=== PATIENT | male | born 1945 | race Caucasian/White ===

== ENCOUNTER 2017-08-25 04:49 | Observation (INO) | payer MEDICARE, SELFPAY ==
[2017-08-25] VITALS (16 sets, daily range): BP systolic 113–141; BP diastolic 60–96; PULSE 57–96; RESP 16–31; TEMP 36.3–36.8; O2SAT 95–99; BMI 27.8; BMI 27.7
--- NOTE | 2017-08-25 04:54 | EKG12_ITS ---
Test Reason : MENTAL HEALTH Blood Pressure : / mmHG Vent. Rate : 091 BPM Atrial Rate : 091 BPM P-R Int : 186 ms QRS Dur : 086 ms QT Int : 368 ms P-R-T Axes : 001 004 037 degrees QTc Int : 452 ms Normal sinus rhythm Normal ECG Confirmed by TOMMY MTZ ([id number]), acquisitions editor AMERICA SHEA ([id number] on 08/29/2017 10:13:47 AM Referred By: Confirmed By:TOMMY MTZ
--- NOTE | 2017-08-25 04:54 | RAD_ITS ---
STUDY: X-RAY CHEST REASON FOR EXAM: Male, 71 years old. Mental status change TECHNIQUE: 1 view COMPARISON: July 17, 2016 FINDINGS: The lungs are clear and expanded. There is no demonstrated pleural abnormality. Normal size heart. Normal mediastinum and adam. Normal visualized pulmonary arteries. Normal visualized aortic arch and descending thoracic aorta. Normal visualized thoracic spine. A reverse right shoulder arthroplasty. Widening of the right acromioclavicular joint with a suggestion of an excision involving the distal right clavicle There is no demonstrated abnormality of the visualized soft tissue structures of the upper abdomen. RAD/Chest 1 View IMPRESSION: No acute findings in the lungs. A reverse right shoulder arthroplasty. A dislocation of the right acromioclavicular joint with an excised tip and elevated distal end of right clavicle Electronically Signed: Eliezer Ortiz, at 5:57 EDT Tel , Service support ,
--- NOTE | 2017-08-25 04:54 | CT_ITS ---
STUDY: CT BRAIN WITHOUT CONTRAST REASON FOR EXAM: Male, 71 years old. Change in mental status RADIATION DOSAGE (If Supplied By Facility): CTDIvol = ( 44.99 ) mGy, DLP = ( 796.11 ) mGycm TECHNIQUE: Transaxial CT imaging of the brain was performed without administration of intravenous contrast material. Individualized dose optimization techniques were used for this CT. COMPARISON: None. FINDINGS: Normal soft tissue structures. Normal calvarium. Normal size ventricles and extra-axial spaces for the patient's age. Normal white matter tracts of the cerebral hemispheres. Normal basal ganglia and thalami. Normal brainstem. Normal cerebellum. There is no intracranial hemorrhage. There are no findings of an acute ischemic infarction. There is bowing of the nasal septum to the right CT/Brain/Head without Contrast IMPRESSION: No acute findings in the brain. Electronically Signed: Eliezer Ortiz, at 5:38 EDT Tel , Service support ,
--- NOTE | 2017-08-25 05:02 | ED.VISSUMM ---
- ER Visit Summary Date of Service: 08/25/17 Chief Complaint: Unresponsive History of Present Illness: The patient is a 71 M presenting after unresponsive episode. Friend states she heard him make a loud noise. He was then found to have snoring respirations. She states he started shaking all over. She was unable to arouse him. EMS was called. On their arrival patient is responsive. He is confused and unable to answer questions. Physical Examination: Vitals are stable. Patient is afebrile. Alert no acute distress. HEENT exam is unremarkable. Neck is supple. Lungs are clear and equal bilaterally. Heart is regular rate and rhythm. Abdomen is soft nontender nondistended. Extremities are unremarkable. Skin is warm and dry. No focal neurologic deficit. Alert and oriented x2, NIH is 1 Remainder of exam is unremarkable. Emergency Department Course and Treatment: EKG is sinus rhythm rate of [address] head shows no acute process. Chest x-ray shows no acute findings. CBC, chemistries unremarkable other than glucose 113, creatinine 1.43. Urinalysis unremarkable. Troponin is negative. Repeat NIH is 0. Patient is now awake and alert. His symptoms may have represented a seizure versus TIA. Will discuss the hospitalist for observation. Disposition: Observation Impression: Altered mental status This note was generated with [employer] dictation software. It may contain incorrect words, spelling, and punctuation that were not noted in review of the chart prior to signing ED Disposition - Plan for ED Patient: Disposition: Acute Care Hospital [facility] Chief Complaint: Mental Status Change
[2017-08-25 05:31] LABS: Absolute Neutrophil Count 3.7 X10^3/uL (2.0-7.7); Basophil# 0.01 X10^3/uL; Basophil% 0.2 % (0-1); Eosinophil# 0.13 X10^3/uL; Eosinophils% 2.5 % (0-5); Hematocrit 41.1 % (40-54); Hemoglobin 13.8 g/dl (13.0-16.5); Lymphocyte % 17.5 % (19-41); Mean Corp Hgb Conc 33.6 g/gl (32-36); Mean Corpuscular Hgb 30.8 pg (27.0-32.0); Mean Corpuscular Volume 91.7 fL (80-94); Mean Platelet Vol. 9.7 fl (6.2-12.0); Monocyte# 0.37 X10^3/uL; Monocyte% 7.2 % (0-10); Neutrophil # 3.74 X10^3/uL (2.7-7.7); Neutrophil % 72.6 % (47-70); Platelet Count 187 K/mm3 (150-450); RBC Distribution Width CV 13.5 % (11.6-14.6); RBC Distribution Width SD 44.4 fl (35.1-43.9); Red Blood Count 4.48 M/mm3 (4.6-6.2); White Blood Count 5.2 K/mm3 (4.4-11.0)
[2017-08-25 05:36] LABS: Prothrombin Time (Protime)PT. 12.7 SECONDS (11.7-14.9)
[2017-08-25 05:37] LABS: Partial Thromboplast Time 28.5 Seconds (24.1-36.2)
[2017-08-25 05:50] LABS: Anion Gap 9 (5-15); BUN 11 mg/dL (7-18); BUN/Creat Ratio 7.7 RATIO (10-20); Calcium,Total 8.7 mg/dL (8.5-10.1); Chloride 107 mmol/L (98-107); Creatinine, Serum 1.43 mg/dL (0.70-1.30); EST Glomerular Filtration Rate 52 mL/min (>60); Est Glom Filt Rate - Afr Amer 63 mL/min (>60); Estimated Creatinine Clearance 44.94 ml/min; Glucose 113 mg/dL (74-106); Sodium Level 141 mmol/L (136-145)
[2017-08-25 05:52] LABS: Bacteria 0 SEEN /hpf (None Seen); Mucous, Urine 0 SEEN /hpf (<or=2+); Red Blood Cells-Urine 0 SEEN /hpf (0-5); Squamous Epithelial Cells - UA 0 SEEN /hpf (0-5); White Blood Cells 0 SEEN /hpf (0-5)
[2017-08-25 05:55] LABS: POSITIVE COUNT NO; POSITIVE DIFFERENTIAL NO; POSITIVE MORPHOLOGY NO
[2017-08-25 06:01] LABS: Color, Urine Yellow (Yellow); Glucose, Dipstick Normal (Normal); Ketone-Dipstick Negative (Negative); Leukocyte Esterase-Dipstick Negative /ul (Negative); Nitrite-Dipstick Negative (Negative); Occult Blood-Urine Negative /ul (Negative); Protein-Dipstick 15 mg/dl (Negative); Specific Gravity, Urine 1.015 (1.002-1.030); Urine Bilirubin Dipstick Negative (Negative); Urine Clarity Clear (Clear); Urine Urobilinogen Normal (Normal)
[2017-08-25 06:05] LABS: Bedside Glucose 126 mg/dL (70-110)
--- NOTE | 2017-08-25 06:50 | HP.PCM_ITS ---
Problem List (1) Unresponsive episode Status: Acute (2) Possible atypical seizure Status: Acute (3) Headache Status: Acute (4) BPH (benign prostatic hyperplasia) Status: Chronic Qualifiers: Lower urinary tract symptom presence: presence of symptoms unspecified (5) GERD (gastroesophageal reflux disease) Status: Chronic Qualifiers: Esophagitis presence: esophagitis presence not specified Qualified Code(s) : K21.9 - Gastro-esophageal reflux disease without esophagitis (6) Glaucoma Status: Chronic Qualifiers: Glaucoma type: unspecified type Laterality: unspecified laterality (7) Lumbar disc disease with radiculopathy Status: Chronic (8) Prostate cancer Status: Chronic (9) Urethral stricture Status: Chronic Qualifiers: Urethral stricture type: unspecified stricture type Qualified Code(s): N35.9 - Urethral stricture, unspecified History of Present Illness Date of Admission: 08/25/17 Chief Complaint: Unresponsive episode The patient is a 71 year old M with history of prostate cancer in remission for last 20 years, possible stroke? last year with no residual deficit was brought into ER by EMS when he had a unresponsive episode at home. Patient last remembers that he went to bathroom to urinate at 4 AM and then as per his girlfriend, Tiff he was unresponsive. She could not wake him up and she called EMS after 15-20 minutes. When the EMS did sternal rub his eyes got open but he still had blank look and was unaware of the surrounding. As per his girlfriend, his body was tight/residual stiff like bow and had few involuntary movement of extremities, possible muscle twitching twitching so possible tonic- clonic seizure. He did not had sudden loss of control of bladder or bowel. He denies any previous similar episode or known history of epilepsy/seizure. About a year ago, when he fell down and had episode of possible altered mental status but did not seek medical medical attention immediately ER went to ER but as per daughter, she thinks stroke but is not medically diagnosed In ED, CT brain does not show acute finding. NIH stroke scale was 1 initially because of level of consciousness but currently it is 0. [] Initial lab work in ED is unremarkable except creatinine 1.43. Glucose 113. UA negative. His baseline creatinine is about 1.14 in July 2016. Past Medical History Past Medical History (Chronic Problems): Chronic Problems BPH (benign prostatic hyperplasia) (Chronic) Lumbar disc disease with radiculopathy (Chronic) GERD (gastroesophageal reflux disease) (Chronic) Prostate cancer (Chronic) Urethral stricture (Chronic) Glaucoma (Chronic) Allergies No Known Allergies Allergy (Verified 08/26/16 10:48) Home Medications: Ambulatory Orders Medication Instructions Recorded Dorzolamide 2% [Trusopt] 1 drop LEFT EYE BID #1 bottle 09/27/13 Latanoprost 0.005% [Xalatan 1 drop OPHTHALMIC QHS #1 bottle 09/27/13 Opthalmic] Brimonidine 0.15% [Alphagan P 1 drop LEFT EYE BID 07/18/16 0.15%] Cholecalciferol (Vitamin D3) 2,000 unit PO DAILY 07/18/16 [D3-2000] Omeprazole [Prilosec] 20 mg PO DAILY 07/18/16 Ropinirole HCl [Requip] 0.5 mg PO DAILY 07/18/16 Ropinirole HCl [Requip] 1 mg PO QHS 07/18/16 Aspirin [Aspirin, Baby] 81 mg PO DAILY@0800 #30 tab.chew 07/19/16 Atorvastatin Calcium [Lipitor] 80 mg PO DAILY #30 tablet 07/19/16 Hydrocodone Bitart/Apap 5-325 1 - 2 tablet PO Q4H PRN PRN #20 08/26/16 [[place]land 5/325] tablet Tamsulosin HCl [Flomax] 2 tab PO DAILY@1730 08/25/17 Surgical History: - - L4-L5 surgery x 2, R shoulder surgery, Trauma to abd/ex lap, appendectomy. Psychiatric History: No pertinent psych hx Smoking Status: Never smoker - *Family History Maternal History Items: Cancer - Maternal history of leukemia. Offspring History Items: - - Migraines. Paternal History Items: - - CAD, Prostate ca, HTN, CABG, DM Review of Systems Constitutional: Denies: Chills, Fever, Weight Change HEENT: Denies: Head Aches, Sinus Congestion, Sinus Drainage Cardiovascular: Denies: Chest Pain, Palpitations Respiratory: Denies: Cough, Shortness of breath at rest, Sputum production Gastrointestinal: Denies: Abdominal Pain, Nausea, Vomiting Genitourinary: Denies: Dysuria Musculoskeletal: Denies: Joint Pain, Joint Tenderness Skin: Denies: Rash, Wounds Neurological: Reports: Confusion. Denies: Balance problems, Blurred vision, Double vision, Change in Speech, Difficulty swallowing, Focal weakness, Numbness , Tingling Psychiatric: Denies: Anxiety, Depression, Homicidal Ideations, Suicidal Ideations Hematologic/ Lymphatic: Denies: Easy Bruising, Easy Bleeding Comment: Review of system taken from patient's daughter and girlfriend VTE Information - Inpt Only VTE Present on Admission: No VTE Mechan Device Prophylaxis: SCD's VTE Pharm Prophylaxis ordered?: Yes Patient Problems: Active and Suspected Problems Unresponsive episode (Acute) Possible atypical seizure (Acute) - Physical Exam General: Alert, Oriented x3, Cooperative HEENT: Atraumatic, PERRLA, EOMI, Normocephalic Neck: Supple, No JVD, Negative Carotid Bruits Lungs: Clear to auscultation, Normal air movement, No rhonchi, No wheeze, No rales Cardiovascular: Regular rate, Regular Rhythm, Normal S1, Normal S2, No murmurs Abdomen: Bowel Sounds Present, Soft, Non Tender, Non-Distended Extremities: No edema, Capillary Refill Less than 3 Seconds Skin: No rashes, No breakdown Musculoskeletal: No Tenderness to Palpation of Joints or Extremities, Arthritic Changes Neurological: Cranial nerves II-XII grossly intact, Neuro grossly intact, Muscle tone normal, Sensory exam intact to light touch and pain, - - NIH stroke scale 0. Psych/Mental Status: Normal Affect, Appropriate Vital Signs Temp Pulse Resp BP Pulse Ox 97.4 F L 66 18 141/85 H 98 08/25/17 06:29 08/25/17 06:34 08/25/17 06:34 08/25/17 06:34 08/25/17 06:34 Oxygen Flow Rate (L/min) 2 Oxygen Delivery Method Room Air Weight: 177 lb 14.609 oz Body Mass Index (BMI) 27.8 Finger Stick Blood Glucose 126 Laboratory Tests Past 24 Hrs 08/25/17 08/25/17 08/25/17 05:15 05:15 05:15 WBC 5.2 RBC 4.48 L Hgb 13.8 Hct 41.1 MCV 91.7 MCH 30.8 MCHC 33.6 RDW 13.5 RDW Differential 44.4 H Plt Count 187 MPV 9.7 Immature Gran % (Auto) 0.000 Neut % (Auto) 72.6 H Lymph % (Auto) 17.5 L [place] % (Auto) 7.2 Eos % (Auto) 2.5 Baso % (Auto) 0.2 Absolute Neuts (auto) 3.7 Absolute Lymphs (auto) 0.90 Total Counted Not Reportable PT 12.7 INR 1.0 APTT 28.5 Sodium 141 Potassium 4.0 Chloride 107 Carbon Dioxide 25.0 Anion Gap 9 BUN 11 Creatinine 1.43 H Estim Creat Clear Calc 44.94 Est GFR (MDRD) Af Amer 63 Est GFR (MDRD) Non-Af 52 L BUN/Creatinine Ratio 7.7 L Glucose 113 H Calcium 8.7 Troponin I < 0.015 Urine Color Urine Clarity Urine pH Ur Specific [place] Urine Protein Urine Glucose (UA) Urine Ketones Urine Occult Blood Urine Nitrite Urine Bilirubin Urine Urobilinogen Ur Leukocyte Esterase Urine RBC Urine WBC Ur Squamous Epith Cells Urine Bacteria Urine Mucus 08/25/17 05:45 WBC RBC Hgb Hct MCV MCH MCHC RDW RDW Differential Plt Count MPV Immature Gran % (Auto) Neut % (Auto) Lymph % (Auto) [place] % (Auto) Eos % (Auto) Baso % (Auto) Absolute Neuts (auto) Absolute Lymphs (auto) Total Counted PT INR APTT Sodium Potassium Chloride Carbon Dioxide Anion Gap BUN Creatinine Estim Creat Clear Calc Est GFR (MDRD) Af Amer Est GFR (MDRD) Non-Af BUN/Creatinine Ratio Glucose Calcium Troponin I Urine Color Yellow Urine Clarity Clear Urine pH 6.0 Ur Specific [place] 1.015 Urine Protein 15 H Urine Glucose (UA) Normal Urine Ketones Negative Urine Occult Blood Negative Urine Nitrite Negative Urine Bilirubin Negative Urine Urobilinogen Normal Ur Leukocyte Esterase Negative Urine RBC 0 SEEN Urine WBC 0 SEEN Ur Squamous Epith Cells 0 SEEN Urine Bacteria 0 SEEN Urine Mucus 0 SEEN POC Glucose 08/25/17 04:57 POC Glucose 126 H Assessment/Plan All Active Problems Unresponsive episode (Acute) Possible atypical seizure (Acute) Headache (Acute) The patient is a 71 year old M with history of prostate cancer in remission for last 20 years, TIA in July 2016 with no residual deficit was brought into ER by EMS when he had a unresponsive episode at home. Patient last remembers that he went to bathroom to urinate at 4 AM and then as per his girlfriend, Tiff he was unresponsive. Patient was also snoring hard. He is not on CPAP for diagnosed sleep apnea. She could not wake him up and she called EMS after 15- 20 minutes. When the EMS did sternal rub his eyes got open but he still had blank look and was unaware of the surrounding. As per his girlfriend, his body was tight/residual stiff like bow and had few involuntary movement of extremities, possible muscle twitching twitching so possible tonic-clonic seizure. He did not had sudden loss of control of bladder or bowel. He denies any previous similar episode or known history of epilepsy/seizure. He was last admitted in in July 2016 for TIA of new onset of slurred speech and facial droop but is resolved. At that time, MRI and CT angiogram of head and neck were negative. 2D echo was without significant finding. EF 60% with left ventricular systolic function normal. RVSP 30 mmHg with mild TR. In ED, CT brain does not show acute finding. NIH stroke scale was 1 initially because of level of consciousness but currently it is 0. [] Initial lab work in ED is unremarkable except creatinine 1.43. Glucose 113. UA negative. His baseline creatinine is about 1.14 in July 2016. 1. Unresponsive episode with high suspicion of atypical seizure/tonic clonic seizure out a stroke: Patient is being admitted to PCU. Neurochecks as per protocol. MRI brain ordered. PT/OT speech and swallow evaluation. Neuro consult. If his stroke comes positive can do full stroke workup. Patient already on aspirin and statin. Blood pressure is reasonably well controlled. IV Ativan as needed for episode of seizure. Patient does not have history of seizure or on any antiepileptic medication at home 2. Possible sleep apnea: Patient will need outpatient sleep study. Measure pulse oximetry during sleep 3. Other comorbidities include glaucoma, restless leg syndrome, GERD, dyslipidemia and history of prostate cancer in remission: Home medication reconciliation done. DVT prophylaxis: Heparin 5000 units subcutaneous twice daily and bilateral SCDs Code Visit OBSV E&M: [id number] Initial observation care L3
--- NOTE | 2017-08-25 07:23 | MRI_ITS ---
STUDY: MRI BRAIN WITHOUT CONTRAST REASON FOR EXAM: Male, 71 years old. unresponsive episode, ? seizure TECHNIQUE: Standardized multiplanar fat and water weighted pulse sequences were obtained. COMPARISON: Jul 18 2016, CT August 25, 2017 FINDINGS: Normal size of the ventricles and extra-axial spaces for the patient's age. There are a limited number of small white matter hyperintensities, distributed throughout the deep white matter tracts of the cerebral hemispheres, consistent with mild chronic white matter ischemic changes. Normal bilateral basal ganglia. Normal thalami. There is no extra-axial fluid accumulation. Normal flow voids within the major intracranial circulation suggesting patency by spin echo criteria. There is enlargement of the sella turcica with increased CSF within the sella and flattening of the pituitary gland consistent with an empty sellar syndrome. Normal infundibular stalk, hypothalamus, and optic chiasm. Normal tectal plate and pineal gland. Normal midbrain, billie and medulla. Normal cerebellum. Normal basal cisterns. Normal bilateral temporal bones. Normal bilateral internal auditory canals. No demonstrated orbital abnormality, within the constraints of a routine brain study. Normal visualized paranasal sinuses. Normal calvarium and skull base. Normal visualized soft tissue structures. Normal visualized upper cervical spine. MRI/Brain without Contrast IMPRESSION: All of the findings are stable Electronically Signed: Corine Kilpatrick MD at 12:04 EDT , Service support ,
[2017-08-25 07:51] LABS: Alcohol, Blood (Medical)-Serum < 3.0 mg/dL
[2017-08-25 08:00] LABS: Amphetamine Urine VISTA NEGATIVE (<1000 ng/mL); Barbiturate Urine VISTA NEGATIVE (< 200 ng/mL); Benzodiazepine Urine VISTA NEGATIVE (< 200 ng/mL); Cocaine Urine VISTA NEGATIVE (< 300 ng/mL); Ecstacy Urine VISTA NEGATIVE (< 500 ng/mL); Methadone Urine VISTA NEGATIVE (< 300 ng/mL); PCP Urine VISTA NEGATIVE (< 25 ng/mL); THC Urine VISTA NEGATIVE (< 50 ng/mL); Vista UDS pH Range 5
[2017-08-25 08:17] LABS: Thyroid Stim Hormone (TSH) 4.37 uIU/mL (0.358-3.74)
[2017-08-25] MEDS: 0.9% Normal Saline 1,000 ML 100 ML IV ×2 (09:31→21:49)
[2017-08-25] MEDS: BRIMONIDINE 0.15% 5 ML Bottle 1 DRP LEFT EYE (09:32)
[2017-08-25] MEDS: Pantoprazole Sodium 20 MG Tablet PO (09:33)
[2017-08-25] MEDS: Pramipexole Di-HCl 0.25 MG Tablet PO (09:33)
[2017-08-25] MEDS: Dorzolamide 2% 10ml Bottle 1 DRP LEFT EYE (09:34)
[2017-08-25] MEDS: Aspirin 81 MG TAB.CHEW PO (09:36)
[2017-08-25] MEDS: Heparin Injection (Vial) 5,000 UNIT/ML VIAL 5000 UNIT SC ×2 (09:36→21:51)
--- NOTE | 2017-08-25 12:29 | PCM.CONS.GEN ---
Problem List (1) Unresponsive episode Status: Acute Reason for Consult Date of Consultation: 08/25/17 Reason for Consultation: Unreponsive episode History of Present Illness: The patient is a 71 year old CM with PMH ? TIA, s/p lumbar laminectomy, RLS,H/O ETOH abuse (quit about 20 yrs ago), prostate cancer, urethral stricture admitted with episode of unresponsiveness. Per patient he got up at around 4 am this morning (08/25/17) to use the bathroom, remembers coming back to the bed and the next thing he remembers is waking up in the ER. Per patient's girl friend, she heard some noise in the bed, when she saw him unresponsive, had stiffening of the extremities, but denies any witnessed seizure, she called 911 at around 4:20 am, no tongue bite, urinary incontinence, was confused initially in the ED and later came back to his baseline. Per daughter about a year ago in August 2016 he found himself on the floor, was not sure how long he was on the floor but was found to have right humerus head fracture and had scalp laceration at that time. A month prior to that per patient he was admitted with possible TIA when he was confused, had slurred speech and some facial droop, but was stressed out at that time since his had just after suffering from Colon cancer at that time. At present patient denies any LEE, visual disturbances, sensory loss, focal motor weakness. [] Past Medical History Past Medical History (Chronic Problems): Chronic Problems BPH (benign prostatic hyperplasia) (Chronic) Lumbar disc disease with radiculopathy (Chronic) GERD (gastroesophageal reflux disease) (Chronic) Prostate cancer (Chronic) Urethral stricture (Chronic) Glaucoma (Chronic) Allergies No Known Allergies Allergy (Verified 08/26/16 10:48) Home Medications: Ambulatory Orders Medication Instructions Recorded Latanoprost 0.005% [Xalatan 1 drop OPHTHALMIC QHS #1 bottle 09/27/13 Opthalmic] Cholecalciferol (Vitamin D3) 2,000 unit PO DAILY 07/18/16 [D3-2000] Omeprazole [Prilosec] 20 mg PO DAILY 07/18/16 Ropinirole HCl [Requip] 0.5 mg PO DAILY 07/18/16 Ropinirole HCl [Requip] 1 mg PO QHS 07/18/16 Aspirin [Aspirin, Baby] 81 mg PO DAILY@0800 #30 tab.chew 07/19/16 Atorvastatin Calcium [Lipitor] 80 mg PO DAILY #30 tablet 07/19/16 Brimonidine Tartrate 0.2% 1 drop RIGHT EYE BID 08/25/17 [Brimonidine 0.2% 5Ml Bottle] Dorzolamide HCl/Timolol Maleat 1 drop EACHEYE BID 08/25/17 [Cosopt Eye Drops] Ketorolac Tromethamine [Acular] 1 drop RIGHT EYE BID 08/25/17 Tamsulosin HCl [Flomax] 2 tab PO DAILY@1730 08/25/17 Surgical History: - - L4-L5 surgery x 2, R shoulder surgery, Trauma to abd/ex lap, appendectomy. Psychiatric History: No pertinent psych hx Lives: Alone Smoking Status: Never smoker Alcohol: None Drugs: None - *Family History Maternal History Items: Cancer - Maternal history of leukemia. Offspring History Items: - - Migraines. Paternal History Items: - - CAD, Prostate ca, HTN, CABG, DM Review of Systems Constitutional: Reports: - - complete ROS negative except as documented in HPI Patient Problems: Active and Suspected Problems Unresponsive episode (Acute) Possible atypical seizure (Acute) - Physical Exam General: Alert HEENT: Normocephalic Neck: Supple Lungs: Clear to auscultation Cardiovascular: Normal S1, Normal S2 Abdomen: Bowel Sounds Present Extremities: No cyanosis Skin: No rashes Musculoskeletal: No Tenderness to Palpation of Joints or Extremities Neurological: Cranial nerves II-XII grossly intact, Deep Tendon Reflexes 2+/4 and Symmetrical, Neuro grossly intact, Motor Exam 5/5 strength throughout, Muscle tone normal, Sensory exam intact to light touch and pain, Coordination normal Psych/Mental Status: Normal Affect Vital Signs Temp Pulse Resp BP Pulse Ox 97.8 F 71 16 136/80 H 96 08/25/17 11:57 08/25/17 11:57 08/25/17 11:57 08/25/17 11:57 08/25/17 11:57 Oxygen Delivery Method Room Air Weight: 78 kg Body Mass Index (BMI) 27.7 Intake and Output for Last 24 Hours 08/23/17 08/24/17 08/25/17 23:59 23:59 23:59 Intake Total 240 / 240 Balance 240 / 240 Laboratory Tests Past 24 Hrs 08/25/17 08/25/17 07:35 11:26 Troponin I < 0.015 < 0.015 TSH 4.37 H Assessment/Plan All Active Problems Unresponsive episode (Acute) Possible atypical seizure (Acute) Headache (Acute) The patient is a 71 year old CM with PMH ? TIA, s/p lumbar laminectomy, RLS,H/O ETOH abuse (quit about 20 yrs ago), prostate cancer, urethral stricture admitted with episode of unresponsiveness. Per patient he got up at around 4 am this morning (08/25/17) to use the bathroom, remembers coming back to the bed and the next thing he remembers is waking up in the ER. Per patient's girl friend, she heard some noise in the bed, when she saw him unresponsive, had stiffening of the extremities, but denies any witnessed seizure, she called 911 at around 4:20 am, no tongue bite, urinary incontinence, the episode lasted about 20-30 mins per girlfriend, was confused initially in the ED and later came back to his baseline. Per daughter about a year ago in August 2016 he found himself on the floor, was not sure how long he was on the floor but was found to have right humerus head fracture and had scalp laceration at that time. A month prior to that per patient he was admitted with possible TIA when he was confused, had slurred speech and some facial droop, but was stressed out at that time since his had just after suffering from Colon cancer at that time. At present patient denies any LEE, visual disturbances, sensory loss, focal motor weakness. Impression Likely Syncope-? cause Plan -MRI Brain reviewed- nothing acute -Await EEG -Will hold off on AEDs at present, no clear witnessed seizure history -rule out cardiac causes- consult cardiology -Recommend 30 day event recorder and TTE -Seizure precautions -Fall precautions -GI/DVT prophylaxis. -Patient counseled not to drive for 6 months -Please call with questions if any -Thank you for allowing us to participate in patient's care I spent 60 minutes taking history, doing physical examination, reviewing medical records, coordinating care and counseling the patient.
--- NOTE | 2017-08-25 15:26 | ECHOD_ITS ---
Reason For Study: SYNCOPE/NEAR SYNCOPE Procedure This was a 2D Doppler, Color Flow transthoracic echocardiogram. Exam performed in department. Left Ventricle Normal size and thickness. The estimated ejection fraction is 65 %. Stage 1 diastolic dysfunction. No regional wall motion abnormalities noted. Right Ventricle Normal size and thickness. Normal systolic function. Atria Normal left atrium. Normal right atrium. Normal atrial septum. Mitral Valve The mitral valve is structurally normal. No prolapse or stenosis seen. Tricuspid Valve Normal tricuspid valve. Mild (1+) tricuspid valve insufficiency. Right ventricular systolic pressure estimated to be 27 mmHg. Aortic Valve Trisinus/trileaflet aortic valve. Mild diffuse aortic valve thickening. Mild (1+) aortic valve insufficiency. Pulmonic Valve Normal pulmonic valve. Great Vessels Normal aortic root. Normal arch. Normal inferior vena cava. Inferior vena cava collapse with sniff. Pericardium/Pleural No pericardial effusion. MMode/2D Measurements & Calculations LVIDd: 5.2 cm IVSd: 0.96 cm Ao root diam: 3.5 cm LVIDs: 3.7 cm LVPWd: 0.93 cm LA dimension: 3.3 cm RVDd: 2.8 cm FS: 28.6 % LAV(MOD-bp): 41.4 ml EDV(MOD-sp4): 113.9 ml SV(MOD-sp4): 79.0 ml LAV(MOD-bp) Indexed: 22.1 ml/m2 ESV(MOD-sp4): 34.8 ml LAV(MOD-sp2): 35.4 ml EF(MOD-sp4): 69.4 % LAV(MOD-sp4): 47.4 ml LA A4 area: 18.4 cm2 RA A4 area: 16.2 cm2 Time Measurements MV dec time: 0.15 sec Doppler Measurements & Calculations MV E max stephen: 76.7 cm/sec Lat Peak E' Stephen: 12.6 cm/sec Med Peak E' Stephen: 9.2 cm/sec MV A max stephen: 52.9 cm/sec E/E' lat: 6.1 E/E' med: 8.4 MV E/A: 1.4 Ao V2 max: 140.9 cm/sec AI max stephen: 470.7 cm/sec LV V1 max: 139.6 cm/sec Ao max P.9 mmHg AI max P.6 mmHg LV V1 max P.8 mmHg AI dec slope: 197.1 cm/sec2 AI P1/2t: 699.4 msec PA V2 max: 122.6 cm/sec TR max stephen: 231.4 cm/sec TR max P.4 mmHg Interpretation Summary The estimated ejection fraction is 65 %. Stage 1 diastolic dysfunction. Mild (1+) tricuspid valve insufficiency. Right ventricular systolic pressure estimated to be 27 mmHg. Mild (1+) aortic valve insufficiency. Compared to echo report dated 07/19/2016, no appreciable changes noted. Ordering Physician: Rajesh Doss Referring Physician: [facility] Performed By: Montserrat Lawrence RDCS
--- NOTE | 2017-08-25 16:29 | EEG ---
- Electroencephalogram Date of service: 08/25/17 History EEG is being done in this 71 yr M to rule out seizures EEG Description: This is an 18 channel EEG with 10-20 lead placement system. Bipolar montages, Referential and Circumferential montages were reviewed. Photic stimulation and Hyperventilation were performed. The posterior dominant background rhythm is 8-9 HZ synchronous, symmetric, reacting to eye opening and closing. Photo stimulation elicited normal driving response but no abnormal photoparoxysmal response, Hyperventilation did not elicit any abnormal photoparoxysmal response. Sleep was identified. There was no epileptiform discharges or electrographic seizures noted during this recording. EEG Interpretation This is a normal awake and asleep EEG. There is no epileptiform discharges or electrographic seizures noted during the record.
[2017-08-25] MEDS: Tamsulosin HCl 0.4 MG Capsule 0.8 MG PO (17:08)
--- NOTE | 2017-08-25 20:30 | PCM.HOSP.N ---
Hospitalist Note Patient was seen and examined briefly today, he had several family members in his room including his significant other who witnessed his unresponsive event which brought him into the hospital. I also talked at length with neurology today, neurology states that his EEG does not show seizure disorder, neurology does not feel that the unresponsive event was secondary to a neurological disorder. Patient's MRI of the brain did not show any evidence of pathology which would cause his unresponsive episode. Neurology recommended that the patient undergo a cardiac workup, I had informal discussions with Dr. Luis today on the phone and I have ordered a pharmacological nuclear stress test tomorrow as well as an echocardiogram. Dr. Luis will talk to the patient tomorrow concerning implantation of a loop recorder to verify the patient is not having cardiac issues which caused his unresponsive episode. According the patient's significant other, patient was unresponsive for approximately 15 minutes despite being jostled and having verbal stimulation. Patient ended up waking up while in the emergency room and he does not remember the episode. Patient's significant other states that she saw no evidence of any seizure activity. Patient has no history of obstructive sleep apnea, the patient was not incontinent during this episode. Patient had an episode approximately 8 months ago where he sustained a fall and broke his shoulder, he did not remember why he fell and he could have had a syncopal episode at that time. I discussed the medical plan of care with the patient and his significant other as well as other family members in the room this afternoon, patient will continue to be monitored on telemetry for now. He will not be placed on any seizure medications
[2017-08-25] MEDS: Atorvastatin Calcium 80 MG Tablet PO (21:50)
[2017-08-25] MEDS: Pramipexole Di-HCl 0.5 MG Tablet PO (21:51)
[2017-08-25] MEDS: BRIMONIDINE 0.15% 5 ML Bottle 1 DRP RIGHT EYE (21:51)
[2017-08-25] MEDS: Latanoprost 0.005% 1 Bottle 1 DRP LEFT EYE (21:53)
[2017-08-25] MEDS: Dorzolamide 2% 10ml Bottle 1 DRP EACH EYE (22:00)
[2017-08-26] VITALS (14 sets, daily range): BP systolic 98–133; BP diastolic 49–87; PULSE 56–85; RESP 16–18; TEMP 36.5–36.6; O2SAT 95–100; BMI 27.7
--- NOTE | 2017-08-26 05:55 | EKG12_ITS ---
Test Reason : Blood Pressure : / mmHG Vent. Rate : 055 BPM Atrial Rate : 055 BPM P-R Int : 186 ms QRS Dur : 084 ms QT Int : 422 ms P-R-T Axes : -31 -28 095 degrees QTc Int : 403 ms Unusual P axis, possible ectopic atrial bradycardia Low voltage QRS Inferior infarct , age undetermined Abnormal ECG When compared with ECG of 25-AUG-2017 05:05, MANUAL COMPARISON REQUIRED, DATA IS UNCONFIRMED Confirmed by TOMMY MTZ ([id number]), art editor AMERICA SHEA ([id number]) on 08/29/2017 3:07:52 PM Referred By: Confirmed By:TOMMY MTZ
[2017-08-26] MEDS: Aspirin 81 MG TAB.CHEW PO (06:03)
[2017-08-26 06:18] LABS: Anion Gap 8 (5-15); BUN 8 mg/dL (7-18); BUN/Creat Ratio 7.5 RATIO (10-20); Calcium,Total 7.9 mg/dL (8.5-10.1); Chloride 112 mmol/L (98-107); Cholesterol 79 mg/dL (200); Creatinine, Serum 1.06 mg/dL (0.70-1.30); EST Glomerular Filtration Rate 73 mL/min (>60); Est Glom Filt Rate - Afr Amer 89 mL/min (>60); Estimated Creatinine Clearance 58.52 ml/min; Glucose 86 mg/dL (74-106); High Density Lipoprotein 43 mg/dL; Potassium 4.1 mmol/L (3.5-5.1); Sodium Level 140 mmol/L (136-145); Triglycerides 103 mg/dL; Very Low Density Lipoprotein 21 mg/dL (5-40)
--- NOTE | 2017-08-26 08:08 | PCM.CONS.C ---
Reason for Consult Date of Consultation: 08/26/17 History of Present Illness: ] The patient is a 71 year old M with history of prostate cancer in remission for last 20 years, possible stroke? last year with no residual deficit was brought into ER by EMS when he had a unresponsive episode at home. Patient last remembers that he went to bathroom to urinate at 4 AM and then as per his girlfriend, Tiff he was unresponsive. She could not wake him up and she called EMS after 15-20 minutes. When the EMS did sternal rub his eyes got open but he still had blank look and was unaware of the surrounding. As per his girlfriend, his body was tight/residual stiff like bow and had few involuntary movement of extremities, possible muscle twitching twitching so possible tonic-clonic seizure. He did not had sudden loss of control of bladder or bowel. He has been in the hospital and has been monitored and there have been no abnormal electrical radiographic findings. An echocardiogram this morning is pending and he was also scheduled for stress test. Cardiology has been consulted to see whether we could shed some further light on this unresponsive episode. He apparently says that he had a similar episode approximately 8 months ago. Past Medical History Allergies/Adverse Reactions: Allergies No Known Allergies Allergy (Verified 08/26/16 10:48) Home Medications: Ambulatory Orders Medication Instructions Recorded Latanoprost 0.005% [Xalatan 1 drop OPHTHALMIC QHS #1 bottle 09/27/13 Opthalmic] Cholecalciferol (Vitamin D3) 2,000 unit PO DAILY 07/18/16 [D3-2000] Omeprazole [Prilosec] 20 mg PO DAILY 07/18/16 Ropinirole HCl [Requip] 0.5 mg PO DAILY 07/18/16 Ropinirole HCl [Requip] 1 mg PO QHS 07/18/16 Aspirin [Aspirin, Baby] 81 mg PO DAILY@0800 #30 tab.chew 07/19/16 Atorvastatin Calcium [Lipitor] 80 mg PO DAILY #30 tablet 07/19/16 Brimonidine Tartrate 0.2% 1 drop RIGHT EYE BID 08/25/17 [Brimonidine 0.2% 5Ml Bottle] Dorzolamide HCl/Timolol Maleat 1 drop EACHEYE BID 08/25/17 [Cosopt Eye Drops] Ketorolac Tromethamine [Acular] 1 drop RIGHT EYE BID 08/25/17 Tamsulosin HCl [Flomax] 2 tab PO DAILY@1730 08/25/17 Past Medical History (Chronic Problems): Chronic Problems BPH (benign prostatic hyperplasia) (Chronic) Lumbar disc disease with radiculopathy (Chronic) GERD (gastroesophageal reflux disease) (Chronic) Prostate cancer (Chronic) Urethral stricture (Chronic) Glaucoma (Chronic) Surgical History: - - L4-L5 surgery x 2, R shoulder surgery, Trauma to abd/ex lap, appendectomy. Psychiatric History: No pertinent psych hx - *Family History Maternal History Items: Cancer - Maternal history of leukemia. Offspring History Items: - - Migraines. Paternal History Items: - - CAD, Prostate ca, HTN, CABG, DM Lives: Alone Smoking Status: Never smoker Alcohol: None Drugs: None Review of Systems - Review of Systems General: Denies: Fever, Night Sweats, Fatigue Cardiovascular: Reports: Syncope. Denies: Chest Discomfort, Shortness of Breath, Orthopnea, PND, Peripheral Edema, Palpitations, Lightheadedness, Dizziness, Near Syncope Respiratory: Denies: Cough, Sputum Production, Hemoptysis Gastrointestinal: Denies: Hematemesis, Hematochezia, Melena Genitourinary: Denies: Dysuria, Hematuria Skin: Denies: Rash Subjectve: Pleasant gentleman in no apparent distress. Objective: Vital Signs Temp Pulse Resp BP Pulse Ox 97.7 F L 85 18 99/55 L 97 08/26/17 06:00 08/26/17 06:14 08/26/17 06:00 08/26/17 06:00 08/26/17 06:00 Oxygen Delivery Method Room Air Weight: 171 lb 15.369 oz Body Mass Index (BMI) 27.7 Intake and Output for Last 24 Hours 08/24/17 08/25/17 08/26/17 23:59 23:59 23:59 Intake Total 1130 / 1130 1320 / 1320 Balance 1130 / 1130 1320 / 1320 General: Awake, Alert, Oriented x 3 HEENT: PERRL, EOMI, Sclera Non Icteric Neck: Supple, Good ROM, No Lymph Node Enlargement Lungs: Clear to auscultation Cardiovascular: Regular Rhythm, Normal S1, Normal S2, No Murmurs, No Rubs, No Gallops Vascular: No Carotid Bruits, Normal Femoral Pulses, Normal Radial Pulses, Normal Dorsalis Pedal Pulse, Normal Posterior Tibial Pulses Abdomen: Bowel Sounds Present, Soft, Non Tender, No HSM, No Organomegaly Extremities: No Cyanosis, No Clubbing, No edema Neurological: No Focal Motor or Sensory Deficit 08/25/17 07:35: Troponin I < 0.015 08/25/17 11:26: Troponin I < 0.015 08/26/17 05:00: Sodium 140, Potassium 4.1, Chloride 112 H, Carbon Dioxide 20.0 L, Anion Gap 8, BUN 8, Creatinine 1.06, Est GFR (MDRD) Af Amer 89, Est GFR (MDRD) Non-Af 73, BUN/Creatinine Ratio 7.5 L, Glucose 86, Calcium 7.9 L, Triglycerides 103, Cholesterol 79, LDL Cholesterol 15, VLDL Cholesterol 21, HDL Cholesterol 43 Rhythm: EKG: ECHO: Stress Test: Cardiac Cath: PCI: CT Surgery: Holter monitor: EPS: PPM: CXR: Chest CT Scan: Assessment/Plan 1. Episode of unresponsiveness. He did have an episode of unresponsiveness and this is the second episode he has had. It is not clear what the etiology of the above is. My recommendation however is that we pursue an implantable loop recorder hopefully this would be able to shed some light on this as an outpatient. The above has been discussed with him the risks benefits and alternatives and depending on the findings further recommendations will be made.
--- NOTE | 2017-08-26 08:11 | CON.PCM_ITS ---
Reason for Consult Date of Consultation: 08/26/17 History of Present Illness: ] The patient is a 71 year old M with history of prostate cancer in remission for last 20 years, possible stroke? last year with no residual deficit was brought into ER by EMS when he had a unresponsive episode at home. Patient last remembers that he went to bathroom to urinate at 4 AM and then as per his girlfriend, Tiff he was unresponsive. She could not wake him up and she called EMS after 15-20 minutes. When the EMS did sternal rub his eyes got open but he still had blank look and was unaware of the surrounding. As per his girlfriend, his body was tight/residual stiff like bow and had few involuntary movement of extremities, possible muscle twitching twitching so possible tonic- clonic seizure. He did not had sudden loss of control of bladder or bowel. He has been in the hospital and has been monitored and there have been no abnormal electrical radiographic findings. An echocardiogram this morning is pending and he was also scheduled for stress test. Cardiology has been consulted to see whether we could shed some further light on this unresponsive episode. He apparently says that he had a similar episode approximately 8 months ago. Past Medical History Allergies/Adverse Reactions: Allergies No Known Allergies Allergy (Verified 08/26/16 10:48) Home Medications: Ambulatory Orders Medication Instructions Recorded Latanoprost 0.005% [Xalatan 1 drop OPHTHALMIC QHS #1 bottle 09/27/13 Opthalmic] Cholecalciferol (Vitamin D3) 2,000 unit PO DAILY 07/18/16 [D3-2000] Omeprazole [Prilosec] 20 mg PO DAILY 07/18/16 Ropinirole HCl [Requip] 0.5 mg PO DAILY 07/18/16 Ropinirole HCl [Requip] 1 mg PO QHS 07/18/16 Aspirin [Aspirin, Baby] 81 mg PO DAILY@0800 #30 tab.chew 07/19/16 Atorvastatin Calcium [Lipitor] 80 mg PO DAILY #30 tablet 07/19/16 Brimonidine Tartrate 0.2% 1 drop RIGHT EYE BID 08/25/17 [Brimonidine 0.2% 5Ml Bottle] Dorzolamide HCl/Timolol Maleat 1 drop EACHEYE BID 08/25/17 [Cosopt Eye Drops] Ketorolac Tromethamine [Acular] 1 drop RIGHT EYE BID 08/25/17 Tamsulosin HCl [Flomax] 2 tab PO DAILY@1730 08/25/17 Past Medical History (Chronic Problems): Chronic Problems BPH (benign prostatic hyperplasia) (Chronic) Lumbar disc disease with radiculopathy (Chronic) GERD (gastroesophageal reflux disease) (Chronic) Prostate cancer (Chronic) Urethral stricture (Chronic) Glaucoma (Chronic) Surgical History: - - L4-L5 surgery x 2, R shoulder surgery, Trauma to abd/ex lap, appendectomy. Psychiatric History: No pertinent psych hx - *Family History Maternal History Items: Cancer - Maternal history of leukemia. Offspring History Items: - - Migraines. Paternal History Items: - - CAD, Prostate ca, HTN, CABG, DM Lives: Alone Smoking Status: Never smoker Alcohol: None Drugs: None Review of Systems - Review of Systems General: Denies: Fever, Night Sweats, Fatigue Cardiovascular: Reports: Syncope. Denies: Chest Discomfort, Shortness of Breath , Orthopnea, PND, Peripheral Edema, Palpitations, Lightheadedness, Dizziness, Near Syncope Respiratory: Denies: Cough, Sputum Production, Hemoptysis Gastrointestinal: Denies: Hematemesis, Hematochezia, Melena Genitourinary: Denies: Dysuria, Hematuria Skin: Denies: Rash Subjectve: Pleasant gentleman in no apparent distress. Objective: Vital Signs Temp Pulse Resp BP Pulse Ox 97.7 F L 85 18 99/55 L 97 08/26/17 06:00 08/26/17 06:14 08/26/17 06:00 08/26/17 06:00 08/26/17 06:00 Oxygen Delivery Method Room Air Weight: 171 lb 15.369 oz Body Mass Index (BMI) 27.7 Intake and Output for Last 24 Hours 08/24/17 08/25/17 08/26/17 23:59 23:59 23:59 Intake Total 1130 / 1130 1320 / 1320 Balance 1130 / 1130 1320 / 1320 General: Awake, Alert, Oriented x 3 HEENT: PERRL, EOMI, Sclera Non Icteric Neck: Supple, Good ROM, No Lymph Node Enlargement Lungs: Clear to auscultation Cardiovascular: Regular Rhythm, Normal S1, Normal S2, No Murmurs, No Rubs, No Gallops Vascular: No Carotid Bruits, Normal Femoral Pulses, Normal Radial Pulses, Normal Dorsalis Pedal Pulse, Normal Posterior Tibial Pulses Abdomen: Bowel Sounds Present, Soft, Non Tender, No HSM, No Organomegaly Extremities: No Cyanosis, No Clubbing, No edema Neurological: No Focal Motor or Sensory Deficit 08/25/17 07:35: Troponin I < 0.015 08/25/17 11:26: Troponin I < 0.015 08/26/17 05:00: Sodium 140, Potassium 4.1, Chloride 112 H, Carbon Dioxide 20.0 L , Anion Gap 8, BUN 8, Creatinine 1.06, Est GFR (MDRD) Af Amer 89, Est GFR (MDRD ) Non-Af 73, BUN/Creatinine Ratio 7.5 L, Glucose 86, Calcium 7.9 L, Triglycerides 103, Cholesterol 79, LDL Cholesterol 15, VLDL Cholesterol 21, HDL Cholesterol 43 Rhythm: EKG: ECHO: Stress Test: Cardiac Cath: PCI: CT Surgery: Holter monitor: EPS: PPM: CXR: Chest CT Scan: Assessment/Plan 1. Episode of unresponsiveness. He did have an episode of unresponsiveness and this is the second episode he has had. It is not clear what the etiology of the above is. My recommendation however is that we pursue an implantable loop recorder hopefully this would be able to shed some light on this as an outpatient. The above has been discussed with him the risks benefits and alternatives and depending on the findings further recommendations will be made.
--- NOTE | 2017-08-26 08:55 | STRESSREP ---
Stress Test Report Pharmacologic myocardial perfusion stress test. 71-year-old male with a history of syncope. Stress protocol: Resting EKG demonstrates normal sinus rhythm with a rate of 60 bpm normal intervals and noted resting blood pressure 730/82 mmHg. 0.4 mg regadenoson was infused per usual protocol followed by rapid intravenous saline flush injection continuous EKG monitoring was performed the maximum heart rate attained was 90 bpm which was 60% maximum predicted heart rate maximum workload attained was 1 metabolic equivalent. At rest there were no ST or T-wave changes noted suggest abnormal flow reserve at peak infusion no ST or T-wave changes were noted suggest abnormal flow reserve. Myocardial perfusion protocol. 11.8 mCi of technetium 99m sestamibi was injected at rest. 0.4 mg regadenoson was infused per usual protocol peak infusion 35.0 mCi of technetium 99m sestamibi was injected stress images were obtained stress and rest images were reconstructed and compared in the short axis vertical long and horizontal long axis. Gated images were also obtained Perfusion SPECT analysis: Review of the stress images demonstrate normal uptake of tracer noted in all areas of the myocardium. The resting images similarly demonstrated normal uptake of tracer noted in all areas of the myocardium. No areas of reversibility are noted suggest ischemia no previous infarct is noted. Gated SPECT analysis. The gated ejection fraction is 66%. Conclusion: Normal pharmacologic myocardial perfusion stress test. Preserved ejection fraction.
[2017-08-26 09:56] LABS: Absolute Neutrophil Count 3.2 X10^3/uL (2.0-7.7); Eosinophil# 0.15 X10^3/uL; Eosinophils% 3.4 % (0-5); Hematocrit 38.5 % (40-54); Hemoglobin 12.8 g/dl (13.0-16.5); Mean Corp Hgb Conc 33.2 g/gl (32-36); Mean Corpuscular Hgb 30.3 pg (27.0-32.0); Mean Corpuscular Volume 91.2 fL (80-94); Mean Platelet Vol. 9.4 fl (6.2-12.0); Monocyte# 0.33 X10^3/uL; Monocyte% 7.6 % (0-10); Neutrophil # 3.19 X10^3/uL (2.7-7.7); Platelet Count 148 K/mm3 (150-450); RBC Distribution Width CV 13.7 % (11.6-14.6); RBC Distribution Width SD 45.6 fl (35.1-43.9); Red Blood Count 4.22 M/mm3 (4.6-6.2); White Blood Count 4.4 K/mm3 (4.4-11.0)
[2017-08-26 09:57] LABS: POSITIVE COUNT NO; POSITIVE DIFFERENTIAL NO; POSITIVE MORPHOLOGY NO
[2017-08-26 09:59] LABS: Prothrombin Time (Protime)PT. 13.5 SECONDS (11.7-14.9)
[2017-08-26 10:00] LABS: Partial Thromboplast Time 31.4 Seconds (24.1-36.2)
[2017-08-26] MEDS: Pramipexole Di-HCl 0.25 MG Tablet PO (10:27)
[2017-08-26] MEDS: Pantoprazole Sodium 20 MG Tablet PO (10:27)
[2017-08-26] MEDS: BRIMONIDINE 0.15% 5 ML Bottle 1 DRP RIGHT EYE (10:28)
[2017-08-26] MEDS: 0.9% Normal Saline 1,000 ML 100 ML IV (10:29)
[2017-08-26] MEDS: Dorzolamide 2% 10ml Bottle 1 DRP EACH EYE (10:29)
[2017-08-26] MEDS: 0.9% NaCl Peripheral Flush Adult/Peds IV (10:44)
--- NOTE | 2017-08-26 13:12 | CL.IE_ITS ---
Patient: CHITRA TREVINO Study Date: 08/26/2017 Performing: Mickey Luis MD : 1945 Age: 71 Gender: male PROCEDURES PERFORMED [id number] OF LOOP RECORDER INDICATIONS Syncope PROCEDURE DETAILS The patient was brought to the Catheterization Lab in the postabsorptive nonsedated state. Informed consent was obtained prior to the procedure. ICM Reveal LINQ was inserted into the pocket. The patie nt tolerated the procedure well. Estimated Blood Loss: 0 ml's IMPLANTED / EX-PLANTED DEVICES DEVICE PARAMETERS CONCLUSIONS / RECOMMENDATIONS Device Conclusions: Successful implantation of a patient activated loop recorder. Device Recommendations: Follow up with Primary Care Physician PROCEDURE MEDICATIONS Versed 1 mg IV Versed 1 mg IV Oxygen: 2 L/min via nasal cannula Antibiotic given in appropriate timeframe. Ancef 2 Gm IV @ 08/26/2017 12:51:18 Signed By Mickey Luis MD On 08/26/2017 13:11:26 Mickey Luis MD
[2017-08-26 13:27] LABS: M R Staph aureus DNA By PCR Negative (Negative); Probe Check PASS; Specimen Processing Control PASS
--- NOTE | 2017-08-26 16:18 | PCM.DC ---
- Discharge Diagnoses Current Active Problems: Current Active and Chronic Problems Unresponsive episode (Acute) Possible atypical seizure (Acute) You will use the following diet at home:: No restrictions Your food should be the consistency of: Regular Your liquids should be the consistency of: Regular/Thin Discharge Activity: Return to Normal Activity Weight Bearing Status: Full weight bearing Additional Instructions: may take dressing off in 3 days or sooner if it gets wet Allergies/Adverse Reactions: Allergies No Known Allergies Allergy (Verified 08/26/16 10:48) Medications to take at Discharge Latanoprost 0.005% [Xalatan Opthalmic] 1 drop OPHTHALMIC QHS #1 bottle 09/27/13 Cholecalciferol (Vitamin D3) [D3-2000] 2,000 unit PO DAILY 07/18/16 Omeprazole [Prilosec] 20 mg PO DAILY 07/18/16 Ropinirole HCl [Requip] 0.5 mg PO DAILY 07/18/16 Ropinirole HCl [Requip] 1 mg PO QHS 07/18/16 Aspirin [Aspirin, Baby] 81 mg PO DAILY@0800 #30 tab.chew 07/19/16 Atorvastatin Calcium [Lipitor] 80 mg PO DAILY #30 tablet 07/19/16 Brimonidine Tartrate 0.2% [Brimonidine 0.2% 5Ml Bottle] 1 drop RIGHT EYE BID 08/25/17 Dorzolamide HCl/Timolol Maleat [Cosopt Eye Drops] 1 drop EACHEYE BID 08/25/17 Ketorolac Tromethamine [Acular] 1 drop RIGHT EYE BID 08/25/17 Tamsulosin HCl [Flomax] 2 tab PO DAILY@1730 08/25/17 Primary Care Physician: [facility] [Primary Care Provider] - Please follow up with your Primary Care Physician in: in 2-3 weeks Please Follow Up With: Mickey Luis MD When: in one week-office will conatact you with time
--- NOTE | 2017-08-26 16:21 | DCINST_ITS ---
- Discharge Diagnoses Current Active Problems: Current Active and Chronic Problems Unresponsive episode (Acute) Possible atypical seizure (Acute) You will use the following diet at home:: No restrictions Your food should be the consistency of: Regular Your liquids should be the consistency of: Regular/Thin Discharge Activity: Return to Normal Activity Weight Bearing Status: Full weight bearing Additional Instructions: may take dressing off in 3 days or sooner if it gets wet Allergies/Adverse Reactions: Allergies No Known Allergies Allergy (Verified 08/26/16 10:48) Medications to take at Discharge Latanoprost 0.005% [Xalatan Opthalmic] 1 drop OPHTHALMIC QHS #1 bottle 09/27/13 Cholecalciferol (Vitamin D3) [D3-2000] 2,000 unit PO DAILY 07/18/16 Omeprazole [Prilosec] 20 mg PO DAILY 07/18/16 Ropinirole HCl [Requip] 0.5 mg PO DAILY 07/18/16 Ropinirole HCl [Requip] 1 mg PO QHS 07/18/16 Aspirin [Aspirin, Baby] 81 mg PO DAILY@0800 #30 tab.chew 07/19/16 Atorvastatin Calcium [Lipitor] 80 mg PO DAILY #30 tablet 07/19/16 Brimonidine Tartrate 0.2% [Brimonidine 0.2% 5Ml Bottle] 1 drop RIGHT EYE BID Dorzolamide HCl/Timolol Maleat [Cosopt Eye Drops] 1 drop EACHEYE BID 08/25/17 Ketorolac Tromethamine [Acular] 1 drop RIGHT EYE BID 08/25/17 Tamsulosin HCl [Flomax] 2 tab PO DAILY@1730 08/25/17 Primary Care Physician: [facility],[place] [Primary Care Provider] - Please follow up with your Primary Care Physician in: in 2-3 weeks Please Follow Up With: Mickey Luis MD When: in one week-office will conatact you with time
--- NOTE | 2017-08-27 18:25 | PCM.DC.SUM ---
Discharge Date and Diagnosis Date of Admission: 08/25/17 Date of Discharge: 08/26/17 - Primary Discharge Diagnosis #1 unresponsive episode at home-etiology unclear #2 gastroesophageal reflux disease #3 degenerative disc disease of the lumbar spine - Secondary Discharge Diagnosis Chronic Problems BPH (benign prostatic hyperplasia) (Chronic) Lumbar disc disease with radiculopathy (Chronic) GERD (gastroesophageal reflux disease) (Chronic) Prostate cancer (Chronic) Urethral stricture (Chronic) Glaucoma (Chronic) Hospital Course and Treatment Operations: None Procedures: 2-D Echocardiogram, Electroencephalogram, Nuclear stress test, - - Implantation of loop recorder Summary of Care Provided: The patient is a 71 year old M seen in the emergency room at [facility] after suffering a period of unresponsiveness at home which was witnessed by his significant other, patient was lying in bed and was unable to be awoken for approximately 15 minutes. Since significant other noted snoring respirations and had a hard time finding a heartbeat on palpation, she called 911 and they told her to initiate CPR she gave the patient approximately 3 chest compressions but decided that she could feel a pulse and did not continue CPR. Patient was evaluated in the emergency room, time of evaluation he was alert but had mild confusion was not able to answer questions about the incident. Workup in the emergency room was unremarkable, patient was placed into observation status on PCU and seen in consultation by neurology, an EEG was performed along with an MRI of the brain, no abnormalities were found and there were no signs of seizure disorder on his EEG. Patient was seen in consultation by cardiology at the request of neurology, a stress test was performed which was negative for reversible ischemia, he also had an echocardiogram performed which was unremarkable. Patient finally had a loop recorder inserted on that same day to monitor for any evidence of cardiac arrhythmias. On 08/26/17, patient was seen and examined felt been stable condition for discharge home, he was to follow-up with cardiology as an outpatient. Discharge Activity: Return to Normal Activity Weight Bearing Status: Full weight bearing Home Medications: Medications to take at Discharge Latanoprost 0.005% [Xalatan Opthalmic] 1 drop OPHTHALMIC QHS #1 bottle 09/27/13 Cholecalciferol (Vitamin D3) [D3-2000] 2,000 unit PO DAILY 07/18/16 Omeprazole [Prilosec] 20 mg PO DAILY 07/18/16 Ropinirole HCl [Requip] 0.5 mg PO DAILY 07/18/16 Ropinirole HCl [Requip] 1 mg PO QHS 07/18/16 Aspirin [Aspirin, Baby] 81 mg PO DAILY@0800 #30 tab.chew 07/19/16 Atorvastatin Calcium [Lipitor] 80 mg PO DAILY #30 tablet 07/19/16 Brimonidine Tartrate 0.2% [Brimonidine 0.2% 5Ml Bottle] 1 drop RIGHT EYE BID 08/25/17 Dorzolamide HCl/Timolol Maleat [Cosopt Eye Drops] 1 drop EACHEYE BID 08/25/17 Ketorolac Tromethamine [Acular] 1 drop RIGHT EYE BID 08/25/17 Tamsulosin HCl [Flomax] 2 tab PO DAILY@1730 08/25/17 Primary Care Physician: [facility] [Primary Care Provider] - Please follow up with your Primary Care Physician in: in 2-3 weeks Please Follow Up With: Mickey Luis MD When: in one week-office will conatact you with time Disposition: Home Minutes spent on discharge:: 30 Patient Condition:: Stable Medical Necessity - Tobacco Use Smoking Status: Never smoker Meaningful Use Info Meaningful Use Diagnoses (Choose all that apply): None applicable Code Visit OBSV E&M: 63874 Observation care discharge
--- NOTE | 2017-08-27 18:29 | DS.PCM_ITS ---
Discharge Date and Diagnosis Date of Admission: 08/25/17 Date of Discharge: 08/26/17 - Primary Discharge Diagnosis #1 unresponsive episode at home-etiology unclear #2 gastroesophageal reflux disease #3 degenerative disc disease of the lumbar spine - Secondary Discharge Diagnosis Chronic Problems BPH (benign prostatic hyperplasia) (Chronic) Lumbar disc disease with radiculopathy (Chronic) GERD (gastroesophageal reflux disease) (Chronic) Prostate cancer (Chronic) Urethral stricture (Chronic) Glaucoma (Chronic) Hospital Course and Treatment Operations: None Procedures: 2-D Echocardiogram, Electroencephalogram, Nuclear stress test, - - Implantation of loop recorder Summary of Care Provided: The patient is a 71 year old M seen in the emergency room at [facility] after suffering a period of unresponsiveness at home which was witnessed by his significant other, patient was lying in bed and was unable to be awoken for approximately 15 minutes. Since significant other noted snoring respirations and had a hard time finding a heartbeat on palpation, she called 911 and they told her to initiate CPR she gave the patient approximately 3 chest compressions but decided that she could feel a pulse and did not continue CPR. Patient was evaluated in the emergency room, time of evaluation he was alert but had mild confusion was not able to answer questions about the incident. Workup in the emergency room was unremarkable, patient was placed into observation status on PCU and seen in consultation by neurology, an EEG was performed along with an MRI of the brain, no abnormalities were found and there were no signs of seizure disorder on his EEG. Patient was seen in consultation by cardiology at the request of neurology, a stress test was performed which was negative for reversible ischemia, he also had an echocardiogram performed which was unremarkable. Patient finally had a loop recorder inserted on that same day to monitor for any evidence of cardiac arrhythmias. On 08/26/17, patient was seen and examined felt been stable condition for discharge home, he was to follow-up with cardiology as an outpatient. Discharge Activity: Return to Normal Activity Weight Bearing Status: Full weight bearing Home Medications: Medications to take at Discharge Latanoprost 0.005% [Xalatan Opthalmic] 1 drop OPHTHALMIC QHS #1 bottle 09/27/13 Cholecalciferol (Vitamin D3) [D3-2000] 2,000 unit PO DAILY 07/18/16 Omeprazole [Prilosec] 20 mg PO DAILY 07/18/16 Ropinirole HCl [Requip] 0.5 mg PO DAILY 07/18/16 Ropinirole HCl [Requip] 1 mg PO QHS 07/18/16 Aspirin [Aspirin, Baby] 81 mg PO DAILY@0800 #30 tab.chew 07/19/16 Atorvastatin Calcium [Lipitor] 80 mg PO DAILY #30 tablet 07/19/16 Brimonidine Tartrate 0.2% [Brimonidine 0.2% 5Ml Bottle] 1 drop RIGHT EYE BID Dorzolamide HCl/Timolol Maleat [Cosopt Eye Drops] 1 drop EACHEYE BID 08/25/17 Ketorolac Tromethamine [Acular] 1 drop RIGHT EYE BID 08/25/17 Tamsulosin HCl [Flomax] 2 tab PO DAILY@1730 08/25/17 [facility] Care Physician: [facility] [Primary Care Provider] - Please follow up with your Primary Care Physician in: in 2-3 weeks Please Follow Up With: Mickey Luis MD When: in one week-office will conatact you with time Disposition: Home Minutes spent on discharge:: 30 Patient Condition:: Stable Medical Necessity - Tobacco Use Smoking Status: Never smoker Meaningful Use Info Meaningful Use Diagnoses (Choose all that apply): None applicable Code Visit OBSV E&M: 45114 Observation care discharge
== END 2017-08-26 16:21 | disposition home or self-care (01) ==
LOC: ED 06:37 → PCU 06:53
PROVIDERS: Internal Medicine Cardiovascular Disease; Admitting Provider Internal Medicine; Emergency Provider Emergency Medicine; Visit Provider Internal Medicine
DX: R41.82 Altered mental status, unspecified (principal); K21.9 Gastro-esophageal reflux disease without esophagitis; M51.36 Other intervertebral disc degeneration, lumbar region; Z85.46 Personal history of malignant neoplasm of prostate; R41.0 Disorientation, unspecified; N40.1 Benign prostatic hyperplasia with lower urinary tract symptoms; N35.9 Urethral stricture, unspecified; Z79.899 Other long term (current) drug therapy; Z79.82 Long term (current) use of aspirin; I08.2 Rheumatic disorders of both aortic and tricuspid valves; R55 Syncope and collapse; R94.31 Abnormal electrocardiogram [ECG] [EKG]; R47.81 Slurred speech
CPT/HCPCS: 33282; 36415; 70450; 70551; 71045; 78452; 80048; 80061; 80307; 80320; 81001; 82962; 84443; 84484; 85025; 85610; 85730; 87641; 92523; 93005; 93017; 93306; 95819; 96360; 96361; 96372; 97162; 97165; 99152; 99218; 99285; A9500; J7030; J7040; A4216; G0378; G0480; J2785

== ENCOUNTER 2017-12-31 20:45 | Emergency (ER) | payer MEDICARE, SELFPAY ==
[2017-12-31 20:46] VITALS: BP 138/83; PULSE 61; RESP 17; TEMP 36.7; O2SAT 94; BMI 30.9
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
[2017-12-31] MEDS: Acetaminophen 500 MG Tablet 1000 MG PO (21:02)
--- NOTE | 2017-12-31 21:10 | RAD_ITS ---
STUDY: X-RAY - LEFT HUMERUS REASON FOR EXAM: Male, 72 years old. Injury fall pain upper humerus TECHNIQUE: 3 view(s) of the humerus. COMPARISON: None. FINDINGS: Normal visualized humerus. There is no demonstrated fracture or osseous destructive process. There is no demonstrated soft tissue abnormality. RAD/Humerus min 2 Views IMPRESSION: Normal x-ray examination of the humerus. Electronically Signed: Alejo Nair MD at 21:20 EDT , Service support ,
--- NOTE | 2017-12-31 21:28 | ED.DEP ---
ED Disposition - Plan for ED Patient: Disposition: Home or Assisted Living Chief Complaint: Upper Extremity Injury Instructions: ED Sprain Shoulder [facility]errals: [facility] [[facility] - 1 Week if not improving
[2017-12-31 21:58] VITALS: BP 128/71; PULSE 69; RESP 14; O2SAT 99
== END 2017-12-31 21:59 | disposition home or self-care (01) ==
PROVIDERS: Emergency Provider Emergency Medicine
DX: S40.022A Contusion of left upper arm, initial encounter (principal); W10.1XXA Fall (on)(from) sidewalk curb, initial encounter; Y93.9 Activity, unspecified; Y92.9 Unspecified place or not applicable; Y99.9 Unspecified external cause status; K21.9 Gastro-esophageal reflux disease without esophagitis; Z79.82 Long term (current) use of aspirin; Z79.899 Other long term (current) drug therapy; Z85.46 Personal history of malignant neoplasm of prostate
CPT/HCPCS: 73060; 99283

== ENCOUNTER 2018-01-06 23:41 | Observation (INO) | payer MEDICARE, SELFPAY ==
[2018-01-06 23:44] VITALS: BP 152/96; PULSE 87; RESP 24; TEMP 36.7; O2SAT 94; BMI 29.8
[2018-01-07] VITALS (13 sets, daily range): BP systolic 120–138; BP diastolic 69–89; PULSE 51–70; RESP 14–23; TEMP 36.6–36.9; O2SAT 92–97; BMI 29.2; BMI 29.9
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
--- NOTE | 2018-01-07 00:03 | EKG12_ITS ---
Test Reason : CONFUSION Blood Pressure : / mmHG Vent. Rate : 068 BPM Atrial Rate : 068 BPM P-R Int : 190 ms QRS Dur : 094 ms QT Int : 396 ms P-R-T Axes : 025 -15 047 degrees QTc Int : 421 ms Normal sinus rhythm Normal ECG Confirmed by MELCHOR WEST MD ([id number]), deputy editor in chief ALANIS HALL ([id number] on 01/09/2018 3:22:32 PM Referred By: BUBBA Confirmed By:MELCHOR WEST MD
[2018-01-07 00:36] LABS: Absolute Lymphocyte Count 0.86 X10^3/ul (0.83-4.51); Basophil# 0.02 X10^3/uL; Basophil% 0.3 % (0-1); Eosinophil# 0.14 X10^3/uL; Eosinophils% 1.8 % (0-5); Hematocrit 40.5 % (40-54); Hemoglobin 13.9 g/dl (13.0-16.5); Lymphocyte # 0.86 X10^3/ul (4.0); Lymphocyte % 11.3 % (19-41); Mean Corp Hgb Conc 34.3 g/gl (32-36); Mean Corpuscular Hgb 31.2 pg (27.0-32.0); Mean Platelet Vol. 9.6 fl (6.2-12.0); Monocyte# 0.55 X10^3/uL; Monocyte% 7.2 % (0-10); Neutrophil # 6.03 X10^3/uL (2.7-7.7); Neutrophil % 79.1 % (47-70); Platelet Count 205 K/mm3 (150-450); RBC Distribution Width CV 14.3 % (11.6-14.6); RBC Distribution Width SD 46.6 fl (35.1-43.9); Red Blood Count 4.45 M/mm3 (4.6-6.2); White Blood Count 7.6 K/mm3 (4.4-11.0)
[2018-01-07 00:37] LABS: POSITIVE COUNT NO; POSITIVE DIFFERENTIAL NO; POSITIVE MORPHOLOGY NO
--- NOTE | 2018-01-07 00:40 | RAD_ITS ---
HISTORY: Shortness of breath Comparison: 08/25/2017 and 07/17/2016 Findings: No significant change. EKG leads in place. Limited inspiration. Normal heart size. No vascular congestion, pleural effusion, or acute pulmonary infiltration. No pneumothorax. Right shoulder reverse prosthesis. IMPRESSION: No acute disease or significant change. at 0117 Reported and signed by: Lobo Jain MD Electronically Signed: Lobo Jain, at 1:15 EDT Tel , Service support , RAD/Chest 1 View (Portable)
[2018-01-07 00:48] LABS: Anion Gap 8 (5-15); BUN 12 mg/dL (7-18); BUN/Creat Ratio 9.8 RATIO (10-20); Calcium,Total 8.4 mg/dL (8.5-10.1); Chloride 104 mmol/L (98-107); Creatinine, Serum 1.22 mg/dL (0.70-1.30); EST Glomerular Filtration Rate 62 mL/min (>60); Est Glom Filt Rate - Afr Amer 75 mL/min (>60); Estimated Creatinine Clearance 50.12 ml/min; Glucose 119 mg/dL (74-106); Potassium 3.7 mmol/L (3.5-5.1); Sodium Level 137 mmol/L (136-145)
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
[2018-01-07] MEDS: Ondansetron 4 MG/2 ML Vial IV (01:42)
[2018-01-07] MEDS: 0.9% Normal Saline 1,000 ML 150 ML IV (01:42)
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
--- NOTE | 2018-01-07 01:55 | ED.DCSUM_ITS ---
- ER Visit Summary Date of Service: 01/07/18 Chief Complaint: Unresponsive episode History of Present Illness: The patient is a 72 M who reported that his girlfriend's home around 11 PM. He was found confused on the side of the road. There is no damage to his car. Patient had 2 prior unresponsive episode similar to this. He has a loop recorder and has had an EEG in the past. BG T for EMS was 88. 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 He also has a history of BPH, reflux disease, and prostate cancer. Dr. Luis placed his loop recorder. At this time patient's only complaint is some mild left shoulder pain from a recent injury. He denies chest pain or palpitations. He denies headache. He does not remember what happened from the time he left his girlfriend's house until paramedics were with him. Physical Examination: Blood pressure is 152/96, other vitals normal. Patient sitting upright in bed no acute distress. Head neck examination unremarkable with no sign of trauma. Heart is regular rate and rhythm. Lung sounds are clear. Abdomen is soft nontender. Extremity examination reveals no reducible tenderness. Neuro exam is normal with an NIH of 0 at this time. Test Results: EKG is sinus at 68 with no sign of acute ischemia. Portable chest x-ray shows no acute disease. CT the head shows no hemorrhage or acute disease. CBC and chemistry studies significant only for glucose of 119. Troponin is negative. Emergency Department Course and Treatment: Patient was given IV fluids here. He is been on cardiac nurse practitioner with no evidence of arrhythmias. He will be admitted for further treatment and evaluation. Treatment Plan: [] Disposition: Admit Impression: Unresponsive episode This note was generated with [employer] dictation software. It may contain incorrect words, spelling, and punctuation that were not noted in review of the chart prior to signing ED Disposition - Plan for ED Patient: Chief Complaint: Confusion
[2018-01-07] MEDS: oxyCODONE 5 MG Tablet PO ×3 (03:44→17:01)
[2018-01-07] MEDS: Acetaminophen 500 MG Tablet PO ×4 (06:17→23:39)
--- NOTE | 2018-01-07 08:54 | CON.PCM_ITS ---
Reason for Consult Date of Consultation: 01/07/18 Reason for Consultation: Syncope History of Present Illness: The patient is a 72 year old M with a past medical history of cancer in remission and previous syncopal episodes. He presents today because while he was driving yesterday he suddenly felt a heaviness and heat sensation in his head and then he also started getting diaphoretic. He apparently was driving and had to slow down. He thinks that he may have passed out for a few minutes. You do remember that he had presented earlier this year with a similar episode was evaluated with no significant abnormality and had an implantable loop recorder. His loop recorder was interrogated in December of this year and no significant abnormality was noted. He denies any chest pain or paroxysmal nocturnal dyspnea or palpitations. He says he underwent an EEG at the [facility] not too long ago but does not know the results. He is scheduled to see the neurologist in [place] and a few days. A CT scan of his head performed in the emergency room did not demonstrate any significant abnormalities. [] Past Medical History Allergies/Adverse Reactions: Allergies No Known Allergies Allergy (Verified 01/06/18 23:47) Home Medications: Ambulatory Orders Medication Instructions Recorded Cholecalciferol (Vitamin D3) 2,000 unit PO DAILY 07/18/16 [D3-2000] Omeprazole [Prilosec] 20 mg PO DAILY 07/18/16 Ropinirole HCl [Requip] 0.5 mg PO DAILY 07/18/16 Ropinirole HCl [Requip] 1 mg PO QHS 07/18/16 Brimonidine Tartrate 0.2% 1 drp RIGHT EYE BID 08/25/17 [Brimonidine 0.2% 5Ml Bottle] Dorzolamide HCl/Timolol Maleat 1 drp EACHEYE BID 08/25/17 [Cosopt Eye Drops] Ketorolac Tromethamine [Acular] 1 drp RIGHT EYE BID 08/25/17 Tamsulosin HCl [Flomax] 0.8 mg PO QHS 08/25/17 Atorvastatin Calcium 80 mg PO QHS 01/07/18 Gabapentin [Neurontin] 300 mg PO BID 01/07/18 Latanoprost 0.005% [Xalatan 1 drop OPHTHALMIC QHS 01/07/18 Opthalmic] Melatonin/Pyridoxine HCl (B6) 3 mg PO DAILY 01/07/18 [Melatonin 3 mg Tablet] Sertraline HCl [Zoloft] 100 mg PO DAILY 01/07/18 Past Medical History (Chronic Problems): Chronic Problems (Last Reviewed 01/07/18 @ 03:06 by Colton Judd MD) Hyperlipidemia (Chronic) Unresponsive episode (Chronic) Surgical History: - - L4-L5 surgery x 2, R shoulder surgery, Trauma to abd/ex lap, appendectomy. Psychiatric History: No pertinent psych hx - *Family History Maternal Family History: Family History (Last Reviewed 01/07/18 @ 03:07 by Colton Judd MD) Father CAD (coronary artery disease) Hypertension Diabetes Cancer Mother Cancer History Items: Cancer - Maternal history of leukemia. Offspring Family History: Family History (Last Reviewed 01/07/18 @ 03:07 by Colton Judd MD) Father CAD (coronary artery disease) Hypertension Diabetes Cancer Mother Cancer History Items: - - Migraines. Paternal Family History: Family History (Last Reviewed 01/07/18 @ 03:07 by Colton Judd MD) Father CAD (coronary artery disease) Hypertension Diabetes Cancer Mother Cancer History Items: - - CAD, Prostate ca, HTN, CABG, DM Smoking Status: Never smoker Alcohol: None Drugs: None Review of Systems - Review of Systems General: Denies: Fever, Night Sweats, Fatigue HEENT: Denies: Vision Change Cardiovascular: Reports: Dizziness, Near Syncope, Syncope. Denies: Chest Discomfort, Shortness of Breath, Orthopnea, PND, Peripheral Edema, Palpitations, Lightheadedness Respiratory: Denies: Cough, Sputum Production, Hemoptysis Gastrointestinal: Denies: Hematemesis, Hematochezia, Melena Genitourinary: Denies: Dysuria, Hematuria Muscoloskeletal: Denies: Myalgias Skin: Denies: Rash Neurological: Reports: Dizziness, Confusion Psychiatric: Denies: Anxiety Endocrine: Denies: Heat Intolerance, Unexplained Weight Loss Hematologic/ Lymphatic: Reports: Anemia Subjectve: Pleasant gentleman in no apparent distress Objective: Vital Signs Temp Pulse Resp BP Pulse Ox 98.2 F 51 L 14 125/71 H 97 01/07/18 02:42 01/07/18 07:05 01/07/18 02:42 01/07/18 03:26 01/07/18 02:42 Oxygen Delivery Method Room Air Weight: 181 lb 7.047 oz Body Mass Index (BMI) 29.2 Finger Stick Blood Glucose 126 Orthostatic Vital Signs Start: 01/07/18 03:26 Freq: q24h Status: Active Protocol: Activity Type Activity Date Activity User E-Sign Co-Sign Detail Recorded Client Recorded Date Recorded By Document 01/07/18 03:26 [facility] [id number] 01/07/18 03:29 [facility] 01/07/18 03:26 Orthostatic Vitals Standing -Blood Pressure (90/60-120/80) 128/73 H -Extremity Use Right Arm -Pulse Rate (60-100) 66 Sitting -Blood Pressure (90/60-120/80) 131/73 H -Extremity Use Right Arm -Pulse Rate (60-100) 64 Lying -Blood Pressure (90/60-120/80) 125/71 H -Extremity Use Right Arm -Pulse Rate (60-100) 63 Intake and Output for Last 24 Hours 01/05/18 01/06/18 01/07/18 23:59 23:59 23:59 Intake Total 120 / 120 Balance 120 / 120 General: Awake, Alert, Oriented x 3 HEENT: PERRL, EOMI, Sclera Non Icteric Neck: Supple, Good ROM, No Lymph Node Enlargement Lungs: Clear to auscultation Cardiovascular: Regular Rhythm, Normal S1, Normal S2, No Murmurs, No Rubs, No Gallops Vascular: No Carotid Bruits, Normal Femoral Pulses, Normal Radial Pulses, Normal Dorsalis Pedal Pulse, Normal Posterior Tibial Pulses Abdomen: Bowel Sounds Present, Soft, Non Tender, No HSM, No Organomegaly Extremities: No Cyanosis, No Clubbing, No edema Neurological: No Focal Motor or Sensory Deficit 01/07/18 00:20: WBC 7.6, RBC 4.45 L, Hgb 13.9, Hct 40.5, MCV 91.0, MCH 31.2, MCHC 34.3, RDW 14.3, RDW Differential 46.6 H, Plt Count 205, MPV 9.6, Immature Gran % (Auto) 0.300, Neut % (Auto) 79.1 H, Lymph % (Auto) 11.3 L, [place] % (Auto) 7.2, Eos % (Auto) 1.8, Baso % (Auto) 0.3, Absolute Neuts (auto) 6.0, Total Counted Not Reportable 01/07/18 00:20: Sodium 137, Potassium 3.7, Chloride 104, Carbon Dioxide 25.0, Anion Gap 8, BUN 12, Creatinine 1.22, Est GFR (MDRD) Af Amer 75, Est GFR (MDRD) Non-Af 62, BUN/Creatinine Ratio 9.8 L, Glucose 119 H, Calcium 8.4 L, Troponin I < 0.015 Rhythm: EKG: Normal sinus rhythm with a rate of 68 bpm Assessment/Plan 1. Recurrent syncope. The etiology of the above is not entirely clear to me at this particular time. My recommendation would be for us to continue to monitor him. He is undergoing an EEG at this particular time. * I would recommend interrogation of his loop recorder to see whether any abnormalities were noted rhythm hartmann. * His blood pressure appears to be under stable control * At this juncture no major changes will be advocated. A recent stress test had demonstrated preserved ejection fraction of 65% and a pharmacologic myocardial perfusion stress test performed within the last 6 months also demonstrated no evidence of ischemia. * 2. Hypertension * Would recommend observing his blood pressure at this particular time. * * Thank you for allowing me to participate in the care of your patient. Please don't hesitate to call if any issues arise
[2018-01-07] MEDS: Pantoprazole Sodium 20 MG Tablet PO (09:18)
[2018-01-07] MEDS: Aspirin 81 MG TAB.CHEW PO (09:18)
[2018-01-07] MEDS: Sertraline 100 MG Tablet PO (09:20)
[2018-01-07] MEDS: BRIMONIDINE 0.2% 5ML BOTTLE 1 DRP RIGHT EYE ×2 (09:21→21:16)
[2018-01-07] MEDS: Dorzolamide HCL/Timolol 10 ml Bottle 1 DRP EACH EYE ×2 (09:21→21:17)
[2018-01-07] MEDS: Enoxaparin 40 MG/0.4 ML Syringe SC (09:21)
--- NOTE | 2018-01-07 10:30 | CASEMGMT ---
RN CM Face to Face with patient for initial transition planning/care coordination assessment. RN CM introduced self and role at [facility]. Patient lying in bed, alert and oriented. Patient willing to participate in assessment and is able to answer all questions appropriately. Care providers, pharmacy, and demographics verified. Patient wishes to discharge home, denies need for home health at this time. Patient states he has no further needs or concerns at this time. CM to follow for discharge planning needs that may arise. PCP: Helen at [facility] Specialists: None Preferred Pharmacy: [facility] or [facility] Insurance: [employer], [employer] Prescription Benefit: [employer], [employer] Living Will/HPOA: Yes, Daughter Rosina Simpson LNOK: Daughter and son, girlfriend Living Arrangements: Patient lives alone in a 1st floor apt. Patient is independent. Transportation: Self or family DME/HHC: Patient has cane. Denies HHC. Patient plans to return home or go to daughters home at discharge. Disposition Plan: Patient to discharge to home or daughter's home with family support and follow-up plans inplace. Cintia GONZALES, RN, CM
[2018-01-07] MEDS: Gabapentin 300 MG Capsule PO ×2 (12:12→17:00)
--- NOTE | 2018-01-07 14:23 | EEG ---
- Electroencephalogram Date of service 01/07/2018 History EEG is being done in this 72 yr M to rule out seizures EEG Description: This is an 18 channel EEG with 10-20 lead placement system. Bipolar montages, Referential and Circumferential montages were reviewed. Photic stimulation and Hyperventilation were performed. The posterior dominant rhythm is 9 HZ synchronous, symmetric, reacting to eye opening and closing. Photo stimulation elicited normal driving response but no abnormal photoparoxysmal response, Hyperventilation did not elicit any abnormal photoparoxysmal response. Sleep was identified. There is no abnormal background slowing noted. There was no epileptiform discharges or electrographic seizures noted during this recording. EKG artefact was noted during the record. EEG Interpretation This is a normal awake and asleep EEG. There is no epileptiform discharges or electrographic seizures noted during the record.
--- NOTE | 2018-01-07 15:34 | PCM.CONS.GEN ---
Problem List (1) Syncope Status: Acute Reason for Consult Date of Consultation: 01/07/18 Reason for Consultation: Syncope History of Present Illness: The patient is a 72 year old CM with PMH ? TIA, s/p lumbar laminectomy, RLS,H/O ETOH abuse (quit about 20 yrs ago), prostate cancer, urethral stricture admitted with episode of syncope. 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 Denies any witnessed seizures, denies any tongue bite or urinary incontinence. Patient had syncopal episode on August 25 2017, when he was admitted to [facility], had normal MRI brain and EEG at that time, later he had loop recorder implantation and he had his 1st syncopal episode about a year before that in August 2016 when he found himself on the floor, was found to have right humerus head fracture and had scalp laceration at that time. A month prior to that per patient he was admitted with possible TIA when he was confused, had slurred speech and some facial droop, but was stressed out at that time since his had just after suffering from Colon cancer at that time. At present patient denies any LEE, visual disturbances, sensory loss, focal motor weakness. Patient denies any h/o GTCS or partial seizure events with these episodes. He lives alone, denies any frequent falls, and does drive. Had a mechanical fall about a week ago per patient and has been having pain in the left shoulder since then. Past Medical History Past Medical History (Chronic Problems): Chronic Problems (Last Reviewed 01/07/18 @ 03:06 by Colton Judd MD) Hyperlipidemia (Chronic) Unresponsive episode (Chronic) Medical History: Medical History (Last Reviewed 01/07/18 @ 03:06 by Colton Judd MD) Hyperlipidemia (Chronic) E78.5 BPH with urinary obstruction N40.1, N13.8 DDD (degenerative disc disease), lumbar M51.36 GERD (gastroesophageal reflux disease) K21.9 Glaucoma H40.9 Prostate cancer C61 Allergies No Known Allergies Allergy (Verified 01/06/18 23:47) Home Medications: Ambulatory Orders Medication Instructions Recorded Cholecalciferol (Vitamin D3) 2,000 unit PO DAILY 07/18/16 [D3-2000] Omeprazole [Prilosec] 20 mg PO DAILY 07/18/16 Ropinirole HCl [Requip] 0.5 mg PO DAILY 07/18/16 Ropinirole HCl [Requip] 1 mg PO QHS 07/18/16 Brimonidine Tartrate 0.2% 1 drp RIGHT EYE BID 08/25/17 [Brimonidine 0.2% 5Ml Bottle] Dorzolamide HCl/Timolol Maleat 1 drp EACHEYE BID 08/25/17 [Cosopt Eye Drops] Ketorolac Tromethamine [Acular] 1 drp RIGHT EYE BID 08/25/17 Tamsulosin HCl [Flomax] 0.8 mg PO QHS 08/25/17 Atorvastatin Calcium 80 mg PO QHS 01/07/18 Gabapentin [Neurontin] 300 mg PO BID 01/07/18 Latanoprost 0.005% [Xalatan 1 drop OPHTHALMIC QHS 01/07/18 Opthalmic] Melatonin/Pyridoxine HCl (B6) 3 mg PO DAILY 01/07/18 [Melatonin 3 mg Tablet] Sertraline HCl [Zoloft] 100 mg PO DAILY 01/07/18 Surgical History: Surgical History (Last Reviewed 01/07/18 @ 03:06 by Colton Judd MD) Status post placement of implantable loop recorder (Acute) Onset Date: 08/26/17 Z95.818 History of appendectomy Z90.49 History of exploratory laparotomy Z98.890 History of lumbar surgery Z98.890 Surgical History: - - L4-L5 surgery x 2, R shoulder surgery, Trauma to abd/ex lap, appendectomy. Psychiatric History: No pertinent psych hx Lives: Alone Smoking Status: Never smoker Alcohol: None Drugs: None - *Family History Maternal Family History: Family History (Last Reviewed 01/07/18 @ 03:07 by Colton Judd MD) Father CAD (coronary artery disease) Hypertension Diabetes Cancer Mother Cancer History Items: Cancer - Maternal history of leukemia. Offspring Family History: Family History (Last Reviewed 01/07/18 @ 03:07 by Colton Judd MD) Father CAD (coronary artery disease) Hypertension Diabetes Cancer Mother Cancer History Items: - - Migraines. Paternal Family History: Family History (Last Reviewed 01/07/18 @ 03:07 by Colton Judd MD) Father CAD (coronary artery disease) Hypertension Diabetes Cancer Mother Cancer History Items: - - CAD, Prostate ca, HTN, CABG, DM Review of Systems Constitutional: Reports: - - complete ROS negative except as documented in HPI Patient Problems: Active and Suspected Problems (Last Reviewed 01/07/18 @ 03:06 by Colton Judd MD) Syncope (Acute) - Physical Exam General: Alert HEENT: Normocephalic Neck: Supple Lungs: Normal air movement Cardiovascular: Normal S1, Normal S2 Abdomen: Bowel Sounds Present Extremities: No cyanosis Neurological: - - consious, alert, AoAx3, CN 2-12 grossly intact, power 5/5 all 4 extremities but has some pain in the left shoulder secondary to recent mechanical fall, denies any sensory loss, no cerebellar signs, Reflexes + B/L B/S/T/K/A, gait deferred Psych/Mental Status: Normal Affect Vital Signs Temp Pulse Resp BP Pulse Ox 98.3 F 59 L 15 120/72 93 01/07/18 09:16 01/07/18 11:28 01/07/18 09:16 01/07/18 09:16 01/07/18 10:49 Oxygen Delivery Method Room Air Weight: 82.3 kg Body Mass Index (BMI) 29.2 Finger Stick Blood Glucose 126 Orthostatic Vital Signs Start: 01/07/18 03:26 Freq: q24h Status: Active Protocol: Activity Type Activity Date Activity User E-Sign Co-Sign Detail Recorded Client Recorded Date Recorded By Document 01/07/18 03:26 [facility] [id number] 01/07/18 03:29 [facility] 01/07/18 03:26 Orthostatic Vitals Standing -Blood Pressure (90/60-120/80) 128/73 H -Extremity Use Right Arm -Pulse Rate (60-100) 66 Sitting -Blood Pressure (90/60-120/80) 131/73 H -Extremity Use Right Arm -Pulse Rate (60-100) 64 Lying -Blood Pressure (90/60-120/80) 125/71 H -Extremity Use Right Arm -Pulse Rate (60-100) 63 Intake and Output for Last 24 Hours 01/05/18 01/06/18 01/07/18 23:59 23:59 23:59 Intake Total 640 / 640 Balance 640 / 640 Laboratory Tests Past 24 Hrs 01/07/18 01/07/18 00:20 00:20 WBC 7.6 RBC 4.45 L Hgb 13.9 Hct 40.5 MCV 91.0 MCH 31.2 MCHC 34.3 RDW 14.3 RDW Differential 46.6 H Plt Count 205 MPV 9.6 Immature Gran % (Auto) 0.300 Neut % (Auto) 79.1 H Lymph % (Auto) 11.3 L [place] % (Auto) 7.2 Eos % (Auto) 1.8 Baso % (Auto) 0.3 Absolute Neuts (auto) 6.0 Absolute Lymphs (auto) 0.86 Total Counted Not Reportable Sodium 137 Potassium 3.7 Chloride 104 Carbon Dioxide 25.0 Anion Gap 8 BUN 12 Creatinine 1.22 Estim Creat Clear Calc 50.12 Est GFR (MDRD) Af Amer 75 Est GFR (MDRD) Non-Af 62 BUN/Creatinine Ratio 9.8 L Glucose 119 H Calcium 8.4 L Troponin I < 0.015 Assessment/Plan All Active Problems (Last Reviewed 01/07/18 @ 03:06 by Colton Judd MD) Syncope (Acute) Status post placement of implantable loop recorder (Acute 08/26/17) Headache (Resolved) The patient is a 72 year old CM with PMH ? TIA, s/p lumbar laminectomy, RLS,H/O ETOH abuse (quit about 20 yrs ago), prostate cancer, urethral stricture admitted with episode of syncope. 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 Denies any witnessed seizures, denies any tongue bite or urinary incontinence. Patient had syncopal episode on August 25 2017, when he was admitted to [facility], had normal MRI brain and EEG at that time, later he had loop recorder implantation and he had his 1st syncopal episode about a year before that in August 2016 when he found himself on the floor, was found to have right humerus head fracture and had scalp laceration at that time. A month prior to that per patient he was admitted with possible TIA when he was confused, had slurred speech and some facial droop, but was stressed out at that time since his had just after suffering from Colon cancer at that time. At present patient denies any LEE, visual disturbances, sensory loss, focal motor weakness. Patient denies any h/o GTCS or partial seizure events with these episodes. He lives alone, denies any frequent falls, and does drive. Had a mechanical fall about a week ago per patient and has been having pain in the left shoulder since then. Impression Syncope- ? Cause, ? Medication induced Plan -Check MRI brain w/o contrast -EEG- negative -At present patient denies any witnessed seizure, is being monitored with loop recorder to rule out cardiac causes -Cardiology following -Patient is seeing a Neurologist as outpatient, and per patient he is due to see him early February, had recent EEG done from [place], report not available -Will hold off AED at present, since no clear seizure events documented -Further left shoulder pain management per primary team -Further medical management per hospitalist -Check orthostatic vitals -On Gabapentin and ropinirole for RLS -Fall precautions -GI/DVT prophylaxis -Patient counseled not to drive -Please follow up with his Neurologist in 2-3 weeks as outpatient -Thank you for allowing us to participate in patient's care and management Code Visit Inpatient E&M: 93259 Init Hosp L3
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
--- NOTE | 2018-01-07 15:48 | MRI_ITS ---
STUDY: MRI BRAIN WITHOUT CONTRAST REASON FOR EXAM: Male, 72 years old. syncope. TECHNIQUE: Standardized multiplanar fat and water weighted pulse sequences were obtained. COMPARISON: August 25, 2017 FINDINGS: Normal size of the ventricles and extra-axial spaces for the patient's age. There are multiple white matter hyperintensities, distributed throughout the deep white matter tracts of the cerebral hemispheres, consistent with mild chronic white matter ischemic changes. Normal bilateral basal ganglia. Normal thalami. There is no extra-axial fluid accumulation. Normal flow voids within the major intracranial circulation suggesting patency by spin echo criteria. Normal sella turcica, pituitary gland, infundibular stalk, optic chiasm and hypothalamus. Normal tectal plate and pineal gland. Normal midbrain, billie and medulla. Normal cerebellum. Normal basal cisterns. Normal bilateral temporal bones. Normal bilateral internal auditory canals. No demonstrated orbital abnormality, within the constraints of a routine brain study. Normal visualized paranasal sinuses. Normal calvarium and skull base. Normal visualized soft tissue structures. Normal visualized upper cervical spine. MRI/Brain without Contrast IMPRESSION: No acute intracranial abnormality. Mild chronic microvascular ischemic changes. Electronically Signed: Nicholas Maxwell MD at 10:56 EST Tel , Service support ,
[2018-01-07] MEDS: Tamsulosin HCl 0.4 MG Capsule PO (17:00)
[2018-01-07] MEDS: Atorvastatin Calcium 80 MG Tablet PO (21:17)
[2018-01-07] MEDS: MELATONIN 3 MG TABLET PO (21:17)
[2018-01-07] MEDS: Latanoprost 0.005% 1 Bottle 1 DRP OPHTHALMIC (21:18)
[2018-01-08] VITALS (8 sets, daily range): BP systolic 107–126; BP diastolic 64–76; PULSE 54–72; RESP 15–16; TEMP 36.6; O2SAT 91–95
[2018-01-08] MEDS: Acetaminophen 500 MG Tablet PO ×2 (06:26→12:53)
[2018-01-08] MEDS: Aspirin 81 MG TAB.CHEW PO (08:24)
[2018-01-08] MEDS: Gabapentin 300 MG Capsule PO (08:24)
--- NOTE | 2018-01-08 08:24 | PN.CARD_ITS ---
Subjectve: Patient seen and evaluated. Appears to be doing well. Objective: Vital Signs Temp Pulse Resp BP Pulse Ox 97.8 F 54 L 16 126/76 H 91 01/08/18 06:31 01/08/18 07:19 01/08/18 06:31 01/08/18 06:31 01/08/18 07:18 Oxygen Delivery Method Room Air Weight: 181 lb 7.047 oz Body Mass Index (BMI) 29.2 Finger Stick Blood Glucose 126 Orthostatic Vital Signs Start: 01/07/18 03:26 Freq: q24h Status: Active Protocol: Activity Type Activity Date Activity User E-Sign Co-Sign Detail Recorded Client Recorded Date Recorded By Document 01/08/18 06:30 BAM [id number] 01/08/18 06:30 BAM 01/08/18 06:30 Orthostatic Vitals Standing -Blood Pressure (90/60-120/80 mm Hg) 113/69 -Extremity Use Right Arm -Pulse Rate (60-100 beats/min) 66 Sitting -Blood Pressure (90/60-120/80 mm Hg) 110/64 -Extremity Use Right Arm -Pulse Rate (60-100 beats/min) 56 L Lying -Blood Pressure (90/60-120/80 mm Hg) 126/76 H -Extremity Use Right Arm -Pulse Rate (60-100 beats/min) 61 Intake and Output for Last 24 Hours 01/06/18 01/07/18 01/08/18 23:59 23:59 22:59 Intake Total 1315 / 1315 Balance 1315 / 1315 General: Awake, Alert, Oriented x 3 HEENT: PERRL, EOMI, Sclera Non Icteric Neck: Supple, Good ROM, No Lymph Node Enlargement Lungs: Clear to auscultation Cardiovascular: Regular Rhythm, Normal S1, Normal S2, No Murmurs, No Rubs, No Gallops Vascular: No Carotid Bruits, Normal Femoral Pulses, Normal Radial Pulses, Normal Dorsalis Pedal Pulse, Normal Posterior Tibial Pulses Abdomen: Bowel Sounds Present, Soft, Non Tender, No HSM, No Organomegaly Extremities: No Cyanosis, No Clubbing, No edema Neurological: No Focal Motor or Sensory Deficit Rhythm: Normal sinus rhythm Medical Necessity - Tobacco Use Smoking Status: Never smoker Assessment/Plan 1. Recurrent syncope. The etiology of the above is not entirely clear to me at this particular time. My recommendation would be for us to continue to monitor him. He is undergoing an EEG at this particular time. * His loop recorder interrogation did not demonstrate any significant abnormalities . * His blood pressure appears to be under stable control * At this juncture no major changes will be advocated. A recent stress test had demonstrated preserved ejection fraction of 65% and a pharmacologic myocardial perfusion stress test performed within the last 6 months also demonstrated no evidence of ischemia. * 2. Hypertension * Would recommend observing his blood pressure at this particular time. * Will sign off at this particular time. * Thank you for allowing me to participate in the care of your patient. Please don't hesitate to call if any issues arise
[2018-01-08] MEDS: Sertraline 100 MG Tablet PO (09:40)
[2018-01-08] MEDS: Pantoprazole Sodium 20 MG Tablet PO (09:40)
[2018-01-08] MEDS: BRIMONIDINE 0.2% 5ML BOTTLE 1 DRP RIGHT EYE (09:41)
[2018-01-08] MEDS: Dorzolamide HCL/Timolol 10 ml Bottle 1 DRP EACH EYE (09:43)
[2018-01-08] MEDS: Enoxaparin 40 MG/0.4 ML Syringe SC (09:43)
--- NOTE | 2018-01-08 12:08 | PCM.DC ---
- Discharge Diagnoses Current Active Problems: Current Active and Chronic Problems (Last Reviewed 01/07/18 @ 03:06 by Colton Judd MD) Syncope (Acute) You will use the following diet at home:: Cardiac Your food should be the consistency of: Regular Discharge Activity: Return to Normal Activity, May Not Drive Weight Bearing Status: Weight bearing as tolerated Call your doctor if you observe: Fever of 101 or Higher, Inability to urinate, Shortness of breath, Dizziness, Fainting spells, Chest pain, Increased palpitations (irregular heartbeat), Uncontrolled pain Additional Instructions: Follow-up with your neurologist in 1-2 weeks. Allergies/Adverse Reactions: Allergies No Known Allergies Allergy (Verified 01/06/18 23:47) Medications to take at Discharge Cholecalciferol (Vitamin D3) [D3-2000] 2,000 unit PO DAILY 07/18/16 Omeprazole [Prilosec] 20 mg PO DAILY 07/18/16 Ropinirole HCl [Requip] 0.5 mg PO DAILY 07/18/16 Ropinirole HCl [Requip] 1 mg PO QHS 07/18/16 Brimonidine Tartrate 0.2% [Brimonidine 0.2% 5Ml Bottle] 1 drp RIGHT EYE BID 08/25/17 Dorzolamide HCl/Timolol Maleat [Cosopt Eye Drops] 1 drp EACHEYE BID 08/25/17 Ketorolac Tromethamine [Acular] 1 drp RIGHT EYE BID 08/25/17 Atorvastatin Calcium 80 mg PO QHS 01/07/18 Gabapentin [Neurontin] 300 mg PO BID 01/07/18 Latanoprost 0.005% [Xalatan Opthalmic] 1 drop OPHTHALMIC QHS 01/07/18 Melatonin/Pyridoxine HCl (B6) [Melatonin 3 mg Tablet] 3 mg PO DAILY 01/07/18 Sertraline HCl [Zoloft] 100 mg PO DAILY 01/07/18 Tamsulosin HCl [Flomax] 0.4 mg PO DAILY@1730 #90 capsule 01/08/18 The following prescriptions were given: Tamsulosin HCl [Flomax] 0.4 mg PO DAILY@1730 #90 capsule Primary Care Physician: [facility] [Primary Care Provider] - Please follow up with your Primary Care Physician in: 1 week. Test Results: Test results from this visit will be discussed in further detail at your follow-up appointment, if applicable.
--- NOTE | 2018-01-08 12:34 | PCM.DC.SUM ---
Discharge Date and Diagnosis - Problem List Patient Problems: Active and Suspected Problems (Last Reviewed 01/07/18 @ 03:06 by Colton Judd MD) Syncope (Acute) Date of Admission: 01/07/18 Date of Discharge: 01/08/18 - Primary Discharge Diagnosis Active and Suspected Problems (Last Reviewed 01/07/18 @ 03:06 by Colton Judd MD) recurrent syncope, unclear etiology. - Secondary Discharge Diagnosis Chronic Problems (Last Reviewed 01/07/18 @ 03:06 by Colton Judd MD) Hyperlipidemia (Chronic) Unresponsive episode (Chronic) Hospital Course and Treatment Imaging Results: Clinical Impression(s) from Imaging Studies Brain CT 01/07/18 00:02 IMPRESSION: 1. Negative for intracranial hemorrhage or acute disease. No significant interval change. 2. If symptoms persist and remain unexplained, further correlation with MR exam may be of benefit Individualized dose optimization techniques were used for this CT. at 0107 Reported and signed by: Lobo Jain MD Electronically Signed: Lobo Jain, at 1:05 EDT Tel , Service support , Chest X-Ray 01/07/18 00:40 Brain MRI 01/07/18 15:48 IMPRESSION: No acute intracranial abnormality. Mild chronic microvascular ischemic changes. Electronically Signed: Nicholas Maxwell MD at 10:56 EST Tel , Service support , Dr. Luis, cardiology. Dr. Art, neurology. Operations: None Procedures: Electroencephalogram, EKG Summary of Care Provided: Patient seen and examined on the day of discharge and appeared to be stable to be discharged home. He has no more dizzy spells or syncope. He has been ambulating, vital signs are stable. The patient is a 72 year old M admitted for recurrent syncope for evaluation. The patient had 2 syncopal episodes on the day of admission. He has been having issues with recurrent syncopal episodes for over a year and he underwent extensive workup as inpatient as well as outpatient. During this admission, CT scan brain performed and revealed no evidence of acute ischemic changes. His EKG revealed normal sinus rhythm without evidence of cardiac arrhythmias or acute ischemic changes. His vital signs were stable throughout admission. He had stress test back on August, that was normal with preserved ejection fraction. Also, he had 2D echocardiogram on August, that revealed ejection fraction of 65%, stage I diastolic dysfunction, RVSP of 27 and mild aortic insufficiency without evidence of significant valvular heart disease that can explain his recurrent syncope. Patient has been seeing his PCP and neurologist at the [facility] and recently, he had EEG that was done but no results yet. Patient had loop recorder that was implanted one month ago and was read by Dr. Luis who stated that there is no evidence of cardiac arrhythmias on the loop recorder. Neurology consulted and recommended EEG and MRI brain. EEG performed and was normal awake and sleep EEG without evidence of epileptiform discharges. MRI brain also done on the day of discharge and showed no evidence of acute infarction or hemorrhage, no evidence of mass lesion. Routine blood work was unremarkable. His vital signs remained stable throughout admission. The only possible reason for his recurrent syncope as the Flomax as patient has been taking 0.8 mg p.o. daily over the last year. Dose of Flomax decreased down to 0.5 mg p.o. daily. Patient discharged home in a stable medical condition, only change was made to his medication is that his Flomax decreased from 0.8 mg p.o. daily down to 0.4 mg p.o. daily, continued his other home medication without any changes, recommended follow-up with PCP in 1 week and follow-up with his neurologist at the [facility] in 1-2 weeks. Patient Problems: Active and Suspected Problems (Last Reviewed 01/07/18 @ 03:06 by Colton Judd MD) Syncope (Acute) - Physical Exam General: Alert, Oriented x3, Cooperative, No apparent distress HEENT: Atraumatic, PERRLA, EOMI, Normocephalic Oral: Moist Mucosa, No Gingival or Mucosal Lesions/ Ulcerations Neck: Supple, No JVD, Negative Carotid Bruits, Trachea Midline, Thyroid Normal Size and Texture Lungs: Clear to auscultation, Normal air movement, No rhonchi, No wheeze, No rales Cardiovascular: Regular rate, Regular Rhythm, Normal S1, Normal S2, PMI Normal Abdomen: Bowel Sounds Present, Soft, Non Tender, Non-Distended, No Hepato-splenomegaly Extremities: No clubbing, No cyanosis, No edema Skin: No rashes, No breakdown Lymphatic: No Cervical, Supraclavicular, or Inguinal Adenopathy Neurological: Cranial nerves II-XII grossly intact, Motor Exam 5/5 strength throughout Psych/Mental Status: Normal Affect, Appropriate Vital Signs Temp Pulse Resp BP Pulse Ox 97.8 F 60 16 126/76 H 91 01/08/18 06:31 01/08/18 11:46 01/08/18 06:31 01/08/18 06:31 01/08/18 07:18 Oxygen Delivery Method Room Air Weight: 181 lb 7.047 oz Body Mass Index (BMI) 29.2 Finger Stick Blood Glucose 126 Orthostatic Vital Signs Start: 01/07/18 03:26 Freq: q24h Status: Active Protocol: Activity Type Activity Date Activity User E-Sign Co-Sign Detail Recorded Client Recorded Date Recorded By Document 01/08/18 06:30 [facility] [id number] 01/08/18 06:30 [facility] 01/08/18 06:30 Orthostatic Vitals Standing -Blood Pressure (90/60-120/80) 113/69 -Extremity Use Right Arm -Pulse Rate (60-100) 66 Sitting -Blood Pressure (90/60-120/80) 110/64 -Extremity Use Right Arm -Pulse Rate (60-100) 56 L Lying -Blood Pressure (90/60-120/80) 126/76 H -Extremity Use Right Arm -Pulse Rate (60-100) 61 Intake and Output for Last 24 Hours 01/06/18 01/07/18 01/08/18 23:59 23:59 22:59 Intake Total 1315 / 1315 Balance 1315 / 1315 Discharge Activity: Return to Normal Activity, May Not Drive Weight Bearing Status: Weight bearing as tolerated Call your doctor if you observe: Fever of 101 or Higher, Inability to urinate, Shortness of breath, Dizziness, Fainting spells, Chest pain, Increased palpitations (irregular heartbeat), Uncontrolled pain Home Medications: Medications to take at Discharge Cholecalciferol (Vitamin D3) [D3-2000] 2,000 unit PO DAILY 07/18/16 Omeprazole [Prilosec] 20 mg PO DAILY 07/18/16 Ropinirole HCl [Requip] 0.5 mg PO DAILY 07/18/16 Ropinirole HCl [Requip] 1 mg PO QHS 07/18/16 Brimonidine Tartrate 0.2% [Brimonidine 0.2% 5Ml Bottle] 1 drp RIGHT EYE BID 08/25/17 Dorzolamide HCl/Timolol Maleat [Cosopt Eye Drops] 1 drp EACHEYE BID 08/25/17 Ketorolac Tromethamine [Acular] 1 drp RIGHT EYE BID 08/25/17 Atorvastatin Calcium 80 mg PO QHS 01/07/18 Gabapentin [Neurontin] 300 mg PO BID 01/07/18 Latanoprost 0.005% [Xalatan Opthalmic] 1 drop OPHTHALMIC QHS 01/07/18 Melatonin/Pyridoxine HCl (B6) [Melatonin 3 mg Tablet] 3 mg PO DAILY 01/07/18 Sertraline HCl [Zoloft] 100 mg PO DAILY 01/07/18 Tamsulosin HCl [Flomax] 0.4 mg PO DAILY@1730 #90 capsule 01/08/18 Following Prescrptions Were Given to Patient: Tamsulosin HCl [Flomax] 0.4 mg PO DAILY@1730 #90 capsule [facility] [Primary Care Provider] - Please follow up with your Primary Care Physician in: 1 week. Medical Necessity - Tobacco Use Smoking Status: Never smoker Meaningful Use Info Meaningful Use Diagnoses (Choose all that apply): None applicable Code Visit OBSV E&M: 18620 Observation care discharge
== END 2018-01-08 12:09 | disposition home or self-care (01) ==
LOC: ED 01-07 00:49 → PCU 01-07 01:43
PROVIDERS: Admitting Provider Hospitalist; Emergency Provider Emergency Medicine; Visit Provider Hospitalist
DX: R55 Syncope and collapse (principal); E78.5 Hyperlipidemia, unspecified; K21.9 Gastro-esophageal reflux disease without esophagitis; Z85.46 Personal history of malignant neoplasm of prostate; I10 Essential (primary) hypertension; M51.36 Other intervertebral disc degeneration, lumbar region; Z79.899 Other long term (current) drug therapy; N40.1 Benign prostatic hyperplasia with lower urinary tract symptoms; N13.8 Other obstructive and reflux uropathy; H40.9 Unspecified glaucoma
CPT/HCPCS: 70450; 70551; 71045; 80048; 84484; 85025; 93005; 95819; 96372; 96374; 97162; 97165; 97802; 99218; 99285; J7030; G0378; G8978; G8979; G8987; G8988; G8989; J2405

== ENCOUNTER 2018-02-06 12:46 | Inpatient (IN) | payer MEDICARE, SELFPAY ==
[2018-02-06] VITALS (7 sets, daily range): BP systolic 140–154; BP diastolic 72–81; PULSE 48–67; RESP 16–21; TEMP 36.5–37.2; O2SAT 95–97; BMI 29.7; BMI 28.8
[2018-02-06 13:06] LABS: Bedside Glucose 116 mg/dL (70-110)
--- NOTE | 2018-02-06 13:13 | EKG12_ITS ---
Test Reason : SYNCOPE Blood Pressure : / mmHG Vent. Rate : 066 BPM Atrial Rate : 066 BPM P-R Int : 214 ms QRS Dur : 080 ms QT Int : 418 ms P-R-T Axes : 070 -21 038 degrees QTc Int : 438 ms Sinus rhythm with 1st degree A-V block Low voltage QRS (limb leads) Confirmed by ROSETTE AGUERO, BOBBY ([id number]), editor city [place]ANIS HALL ([id number]) on 02/09/2018 1:34:50 PM Referred By: Mickey Luis Confirmed By:BOBBY DINERO MD
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
--- NOTE | 2018-02-06 13:24 | RAD_ITS ---
STUDY: X-RAY CHEST REASON FOR EXAM: Male, 72 years old. Unresponsiveness. Altered mental status. TECHNIQUE: Single AP portable view of the chest. COMPARISON: Comparison is made with prior study dated January 07, 2018. FINDINGS: EKG electrodes are seen. A loop recorder device is seen overlying the left lower lobe. The lungs are clear. There is no demonstrated pleural abnormality. Normal size heart. Normal mediastinum and adam. Normal visualized pulmonary arteries. There is atherosclerotic tortuosity of the aortic arch and descending thoracic aorta. Normal visualized thoracic spine. The patient is status post right shoulder replacement. There is no demonstrated abnormality of the visualized soft tissue structures of the upper abdomen. RAD/Chest 1 View (Portable) IMPRESSION: No acute abnormality is seen. Electronically Signed: Marino London MD at 13:55 EST Tel [phone], Service support ,
[2018-02-06 13:29] LABS: Hematocrit 44.7 % (40-54); Hemoglobin 14.9 g/dl (13.0-16.5); Mean Corp Hgb Conc 33.3 g/gl (32-36); Mean Corpuscular Hgb 31.2 pg (27.0-32.0); Mean Corpuscular Volume 93.5 fL (80-94); Platelet Count 190 K/mm3 (150-450); RBC Distribution Width CV 13.9 % (11.6-14.6); RBC Distribution Width SD 45.5 fl (35.1-43.9); Red Blood Count 4.78 M/mm3 (4.6-6.2)
[2018-02-06 13:30] LABS: Absolute Lymphocyte Count 1.14 X10^3/ul (0.83-4.51); Absolute Neutrophil Count 4.3 X10^3/uL (2.0-7.7); Basophil# 0.02 X10^3/uL; Basophil% 0.3 % (0-1); Eosinophil# 0.13 X10^3/uL; Eosinophils% 2.2 % (0-5); Lymphocyte # 1.14 X10^3/ul (4.0); Mean Platelet Vol. 9.9 fl (6.2-12.0); Monocyte# 0.37 X10^3/uL; Monocyte% 6.2 % (0-10); Neutrophil # 4.33 X10^3/uL (2.7-7.7)
[2018-02-06 13:32] LABS: POSITIVE COUNT NO; POSITIVE DIFFERENTIAL NO; POSITIVE MORPHOLOGY NO
[2018-02-06 13:41] LABS: Anion Gap 13 (5-15); BUN 10 mg/dL (7-18); BUN/Creat Ratio 7.1 RATIO (10-20); Calcium,Total 8.8 mg/dL (8.5-10.1); Chloride 105 mmol/L (98-107); EST Glomerular Filtration Rate 53 mL/min (>60); Est Glom Filt Rate - Afr Amer 64 mL/min (>60); Estimated Creatinine Clearance 43.67 ml/min; Glucose 121 mg/dL (74-106); Potassium 4.7 mmol/L (3.5-5.1); Sodium Level 140 mmol/L (136-145)
[2018-02-06 13:49] LABS: Alcohol, Blood (Medical)-Serum < 3.0 mg/dL
--- NOTE | 2018-02-06 14:27 | NURSING ---
PT TOO SHORT
[2018-02-06 15:02] LABS: Amphetamine Urine VISTA NEGATIVE (<1000 ng/mL); Barbiturate Urine VISTA NEGATIVE (< 200 ng/mL); Benzodiazepine Urine VISTA NEGATIVE (< 200 ng/mL); Cocaine Urine VISTA NEGATIVE (< 300 ng/mL); Ecstacy Urine VISTA NEGATIVE (< 500 ng/mL); Methadone Urine VISTA NEGATIVE (< 300 ng/mL); PCP Urine VISTA NEGATIVE (< 25 ng/mL); THC Urine VISTA NEGATIVE (< 50 ng/mL); Vista UDS pH Range 6
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
[2018-02-06] MEDS: Atorvastatin Calcium 80 MG Tablet PO (21:39)
[2018-02-06] MEDS: Sertraline 100 MG Tablet PO (21:39)
[2018-02-06] MEDS: MELATONIN 3 MG TABLET PO (22:08)
[2018-02-06] MEDS: 0.9% Normal Saline 1,000 ML 75 ML IV (22:12)
[2018-02-06] MEDS: 0.9% NaCl Peripheral Flush Adult/Peds IV (22:13)
[2018-02-07] VITALS (18 sets, daily range): BP systolic 124–153; BP diastolic 67–80; PULSE 48–76; RESP 16–20; TEMP 36.4–36.9; O2SAT 92–97
[2018-02-07 02:01] LABS: M R Staph aureus DNA By PCR Negative (Negative); Probe Check PASS; Specimen Processing Control PASS
[2018-02-07] MEDS: Acetaminophen 325 MG Tablet 650 MG PO ×2 (06:58→20:55)
[2018-02-07] MEDS: 0.9% Normal Saline 1,000 ML 75 ML IV ×2 (10:01→17:01)
--- NOTE | 2018-02-07 11:51 | CASEMGMT ---
This RN CM to room to complete CM assessment and pt is out of the dept for testing at this time. CM will attempt again later. SStaten RN CM
--- NOTE | 2018-02-07 13:37 | CASEMGMT ---
RN CM attempted to complete face to face. Patient out of room at high density press laborer. CM will attempt again at another time.
--- NOTE | 2018-02-07 13:55 | CL.IE_ITS ---
Patient: CHITRA TREVINO Study Date: 02/07/2018 Performing: Mickey Luis MD : 1945 Age: 72 Gender: male PROCEDURES PERFORMED [id number] PACER INSERT+DUAL LEADS INDICATIONS Syncope Sinoatrial node dysfunction/Sick sinus syndrome PROCEDURE DETAILS The patient was brought to the Catheterization Lab in the postabsorptive nonsedated state. Infor med consent was obtained prior to the procedure. Local anesthetic was given subcutaneously to the le ft subclavian region with Lidocaine 2%. Access was achieved and a guidewire was advanced into the lef t subclavian vein. Incision was made to the left upper chest. PPM ventricular lead was inserted / pos itioned to right ventricular apex. PPM ventricular lead testing performed. PPM ventricular lead testi ng performed. PPM atrial lead was inserted / positioned to the right atrial appendage. PPM atrial rob d testing performed. The Ventricular PM lead sutured in place with 3-0 Silk. The Atrial lead sutured in place with 3-0 Silk. PPM generator was attached to the lead(s) and inserted into the pocket. Devic e pocket was irrigated with antibiotic. Subcutaneous closure was completed with 3-0 Vicryl. Skin clos ure was completed with 4-0 Vicryl. Steri-strips applied to left subclavicular incision. Instrument, sponge, and needle counts were noted to be normal. The patient tolerated the procedure we ll. Estimated Blood Loss: 10 ml's IMPLANTED / EX-PLANTED DEVICES IMPLANTED DEVICE(S): PPM Ventricular lead - Physicist [place]: PathAR, Model # 7741 , Serial # [id number] PPM Atrial lead - Physicist [place]: PathAR, Model # 7740 , Serial # [id number] PPM Generator - Physicist [place]: PathAR, Model # L111 , Serial # [id number] DEVICE PARAMETERS ATRIAL LEAD PARAMETERS: P wave (mV) - 2.2 Current (mA) - 1.6 threshold (V) - 0.9 impedence (OHMS) - 582 10V test; no diaphragmatic capture P wave- 2.2 (mV) Current- 1.6 (mA) threshold- 0.9 (V) impedence- 582 (OHMS) 10V test, no diaphragmatic capture VENTRICULAR LEAD PARAMETERS: R wave (mV) - 10.9 current (mA) - 0.7 threshold (V) - 0.7 impedence (OHMS) - 1119 10V test; no diaphragmatic capture R wave- 10.9 (mV) Current- 0.7 (mA) threshold- 0.7 (V) impedence- 1119 (OHMS) 10V test, no diaphragmatic capture DEVICE PARAMETERS: Mode - DDDR lower rate - 60 upper rate - 130 rate response on Mode- DDDR Lower rate- 60 Upper rate- 130 CONCLUSIONS / RECOMMENDATIONS Device Conclusions: Successful implantation of a dual chamber pacemaker Device Recommendations: Follow up with Primary Care Physician PROCEDURE MEDICATIONS Versed 1 mg IV Fentanyl 50 mcg IV Versed 1 mg IV Fentanyl 25 mcg IV Fentanyl 25 mcg IV Versed 1 mg IV Oxygen: 2 L/min via nasal cannula Antibiotic given in appropriate timeframe. Ancef 2 Gm IV @ 02/07/2018 12:17:02 Signed By Mickey Luis MD On 02/07/2018 13:55:18 Mickey Luis MD
[2018-02-07] MEDS: Pantoprazole Sodium 20 MG Tablet PO (14:28)
[2018-02-07] MEDS: Gabapentin 300 MG Capsule PO (14:28)
[2018-02-07] MEDS: Dorzolamide HCL/Timolol 10 ml Bottle 1 DRP RIGHT EYE ×2 (14:29→21:01)
[2018-02-07] MEDS: prednisoLONE eye drops (5 mL) 1 DROP OPTH.BTL 1 DRP RIGHT EYE (14:29)
[2018-02-07] MEDS: Sertraline 100 MG Tablet PO (21:00)
[2018-02-07] MEDS: Atorvastatin Calcium 80 MG Tablet PO (21:00)
[2018-02-07] MEDS: MELATONIN 3 MG TABLET PO (21:00)
[2018-02-07] MEDS: prednisoLONE eye drops (5 mL) 1 DROP OPTH.BTL 1 DRP LEFT EYE (21:01)
[2018-02-07] MEDS: Tamsulosin HCl 0.4 MG Capsule PO (23:27)
[2018-02-08 02:37] VITALS: BP 125/78; PULSE 61; RESP 20; TEMP 36.8; O2SAT 97
[2018-02-08 03:19] VITALS: PULSE 61
[2018-02-08 05:46] VITALS: BP 125/78; PULSE 61; RESP 20; TEMP 36.8; O2SAT 97
--- NOTE | 2018-02-08 05:55 | RAD_ITS ---
STUDY: X-RAY CHEST REASON FOR EXAM: Male, 72 years old. Follow-up after pacemaker placement. Evaluate for pneumothorax. TECHNIQUE: AP and lateral views of the chest. COMPARISON: Chest radiograph dated February 06, 2018. FINDINGS: The patient is a left-sided intracardiac pacemaker. Cardiac monitoring leads are present. The lungs are clear and expanded. There is no demonstrated pleural abnormality. There is borderline cardiomegaly. A loop recorder is visible in the region of the left lung base. Normal mediastinum and adam. Normal visualized pulmonary arteries. There is atherosclerotic calcification of the aortic arch with tortuosity. There is an increased kyphosis of the thoracic spine. The patient has had partial resection of the distal right clavicle. The previously some heterotopic bone formation in the expected location of the right coracoclavicular ligament. There is no demonstrated abnormality of the visualized soft tissue structures of the upper abdomen. RAD/Chest PA and Lateral IMPRESSION: No radiographic evidence for pneumothorax. Electronically Signed: Camille Betts MD at 6:21 EST , Service support ,
--- NOTE | 2018-02-08 05:55 | RAD_ITS ---
STUDY: X-RAY CHEST REASON FOR EXAM: Male, 72 years old. Status post pacemaker insertion. Evaluate for pneumothorax. TECHNIQUE: Single AP portable view of the chest. COMPARISON: Chest radiograph dated February 06, 2018. FINDINGS: A left-sided pacemaker is now present. There is no evidence for pneumothorax. A loop recorder is visible in the region of the left upper quadrant. The lungs are underexpanded compared to the previous study. There is curvilinear opacity at the left lung base suggesting subsegmental atelectasis. There is no demonstrated pleural abnormality. There is mild cardiac enlargement. Normal mediastinum and adam. Normal visualized pulmonary arteries. There is atherosclerotic calcification of the aortic arch with tortuosity. There are diffuse degenerative changes of the visualized thoracic spine. The patient has had a total right shoulder arthroplasty. There is no demonstrated abnormality of the visualized soft tissue structures of the upper abdomen. RAD/Chest 1 View IMPRESSION: 1. Expiratory chest radiograph without evidence for pneumothorax. 2. Left basilar subsegmental atelectasis. Electronically Signed: Camille Betts MD at 5:42 EST , Service support ,
--- NOTE | 2018-02-08 06:48 | PN.CARD_ITS ---
Subjectve: Patient seen and evaluated. Appears to be stable. Uneventful night Objective: Vital Signs Temp Pulse Resp BP Pulse Ox 98.2 F 61 20 H 125/78 H 97 02/08/18 05:46 02/08/18 05:46 02/08/18 05:46 02/08/18 05:46 02/08/18 05:46 Oxygen Delivery Method Room Air Weight: 178 lb 9.191 oz Body Mass Index (BMI) 28.8 Finger Stick Blood Glucose 116 Intake and Output for Last 24 Hours 02/06/18 02/07/18 02/08/18 23:59 23:59 23:59 Intake Total 234 / 234 2971 / 2971 583 / 583 Output Total 450 / 450 1650 / 1650 400 / 400 Balance -216 / -216 1321 / 1321 183 / 183 General: Awake, Alert, Oriented x 3 HEENT: PERRL, EOMI, Sclera Non Icteric Neck: Supple, Good ROM, No Lymph Node Enlargement Lungs: Clear to auscultation Cardiovascular: Regular Rhythm, Normal S1, Normal S2, No Murmurs, No Rubs, No Gallops Vascular: No Carotid Bruits, Normal Femoral Pulses, Normal Radial Pulses, Normal Dorsalis Pedal Pulse, Normal Posterior Tibial Pulses Abdomen: Bowel Sounds Present, Soft, Non Tender, No HSM, No Organomegaly Extremities: No Cyanosis, No Clubbing, No edema Neurological: No Focal Motor or Sensory Deficit Rhythm: EKG: ECHO: Stress Test: Cardiac Cath: PCI: CT Surgery: Holter monitor: EPS: PPM: CXR: Chest CT Scan: Medical Necessity - Tobacco Use Smoking Status: Never smoker Assessment/Plan 1. Syncope-status post dual-chamber pacemaker implantation. Patient appears to have had a syncopal episode. This was documented by the loop recorder that it was probably the result of bradycardia arrhythmias greater than 3 seconds. * Patient had an uneventful night. Chest x-ray this morning appears to be without any abnormalities. * Will interrogate pacemaker. * If numbers appear acceptable will discharge for outpatient follow-up.
[2018-02-08 06:55] VITALS: PULSE 62
[2018-02-08] MEDS: Gabapentin 300 MG Capsule PO (08:06)
[2018-02-08] MEDS: prednisoLONE eye drops (5 mL) 1 DROP OPTH.BTL 1 DRP LEFT EYE (08:06)
[2018-02-08] MEDS: Pantoprazole Sodium 20 MG Tablet PO (08:07)
[2018-02-08] MEDS: Dorzolamide HCL/Timolol 10 ml Bottle 1 DRP RIGHT EYE (08:07)
--- NOTE | 2018-02-08 09:44 | PCM.DC.PACE ---
Discharge Diet: No Restrictions Discharge Activity: May Not Drive May resume sexual activity in: 2 weeks Call your doctor if your incision/area has: Continuous Slow Oozing, Sudden Increased Bleeding, Increased Pain/ Swelling, Increased Redness, Foul Smelling Discharge, Swelling at the incision site Call your doctor if you observe: Fever of 101 or Higher, Shortness of breath, Dizziness, Fainting spells, Swelling in the ankles, Chest pain, Prolonged hiccoughing, Increased palpitations (irregular heartbeat) Suture Line Care: Avoid Pulling/Pushing, Avoid Pinching/Bending Change Dressing in (Days):: 3 Remove Dressing in (days):: 3 Cleanse incision/area with: Do not get Incision Wet, Keep Dressing Clean & Dry Additional Dressing/Incision Instructions:: When dressing is removed, wash and dry incision. Keep covered with a light bandage if it is rubbing against your clothing. Do not cover the incision with an airtight bandage. Change the bandage daily. Do not remove steri strips. The strips will fall off on their own. Instructions: ED Dizziness [facility] Additional Instructions: Signs and Symptoms to Report to Your Doctor at Once - call your doctor's office or Doctor's Registry ([phone]) Call 911 or go to the nearest Emergency Department if you feel you need urgent care. *Infection (fever, increased redness or swelling at the incision site, drainage from the incision increased pain at the pacemaker site) *Shortness of breath *Dizziness *Fainting spells *Swelling in the ankles *Chest pain *Prolonged hiccoughing *Increased palpitaitons (irregular heartbeat) Medications: Take your pain medication as directed. Refer to your discharge instruction sheet for a list of medications you are to take. Allergies/Adverse Reactions: Allergies No Known Allergies Allergy (Verified 01/06/18 23:47) Medications to take at Discharge Omeprazole [Prilosec] 20 mg PO BREAKFAST 07/18/16 Dorzolamide HCl/Timolol Maleat [Cosopt Eye Drops] 1 drp RIGHT EYE BID 08/25/17 Atorvastatin Calcium 80 mg PO QHS 01/07/18 Gabapentin [Neurontin] 300 mg PO DAILY 01/07/18 Melatonin/Pyridoxine HCl (B6) [Melatonin 3 mg Tablet] 3 mg PO DAILY 01/07/18 Sertraline HCl [Zoloft] 100 mg PO QHS 01/07/18 Tamsulosin HCl [Flomax] 0.4 mg PO DAILY@1730 #90 capsule 01/08/18 prednisoLONE eye drops (1 mL) [Pred Forte eye drops (1 mL)] 1 drop LEFT EYE BID 02/06/18 Primary Care Physician: [facility] [Primary Care Provider] - Test Results: Test results from this visit will be discussed in further detail at your follow-up appointment, if applicable. When: PAC[facility] 02/14/2018 @ 11 AM Proposed Discharge Date: 02/08/18
[2018-02-08 10:00] VITALS: BP 125/77; PULSE 62; RESP 18; TEMP 36.7; O2SAT 94
--- NOTE | 2018-02-08 10:35 | CASEMGMT ---
MIROSLAVA YATES assessment: Face to Face with patient for initial transition planning/care coordination assessment. MIROSLAVA YATES introduced self and role at [facility], pt voices understanding and consents to assessment at this time. Pt is sitting up in chair in no distress at this time. Pt is A/O x4 at this time and answers all questions appropriately at this time. Care providers, pharmacy, and demographics verified at this time. PCP: [facility] Specialists: [facility] neuro; Toby, cardio Preferred Pharmacy: [facility] Insurance: [employer], [place] Prescription Benefit: [facility] Living Will/HPOA: Pt states has LW/HPOA and they are on file at [facility] at this time. Pt states daughter, Rosina Simpson, is HPOA. LNOK: Rosina Simpson, jam Living Arrangements: Pt states lives alone in apartment and states no stairs at home at this time. Pt states will be going to stay with brother to recover from pacer placement. Transportation: Pt states has not driven in about 6 months d/t eyesight but states family/friends get him where he needs to go and states no transportation concerns. DME/HHC: Pt states has the following DME: shower chair, grab bars, cane, and loop recorder box. Pt states no need for any further DME at this time. Pt states no hx of HHC or SNF in the past. Pt states no concerns with going home at this time. Pt states does not smoke or drink ETOH. Pt states no further concerns/needs at this time. Advised pt to ask for CM if any further questions/concerns/needs arise, voices understanding. Clinicals and d/c instructions faxed to [facility] at this time. Plan: Home w/ brother. SStaten MIROSLAVA YATES
== END 2018-02-08 10:52 | disposition home or self-care (01) | DRG 244 ==
LOC: ED 14:14 → PCU 19:16
PROVIDERS: Admitting Provider Internal Medicine Cardiovascular Disease; Emergency Provider Emergency Medicine; Referring Provider Internal Medicine Cardiovascular Disease; Visit Provider Internal Medicine Cardiovascular Disease
DX: I49.5 Sick sinus syndrome (principal)
CPT/HCPCS: 33208; 36415; 70450; 71045; 71046; 80048; 80307; 80320; 82962; 84484; 85025; 85610; 87641; 93005; 99152; 99153; 99285; J7030; J7040; J7050; Q9967; A4216; C1769; C1894; G0480

== ENCOUNTER 2018-03-17 12:17 | Emergency (ER) | payer MEDICARE, SELFPAY ==
[2018-02-06 20:12] VITALS: BMI 28.8
[2018-03-17 12:18] VITALS: PULSE 69; RESP 20; TEMP 36.6; O2SAT 91; BMI 28.5
--- NOTE | 2018-03-17 13:11 | RAD_ITS ---
STUDY: X-RAY CHEST REASON FOR EXAM: Male, 72 years old. Chest pain and cough TECHNIQUE: PA and lateral views of the chest. COMPARISON: 02/08/2018 FINDINGS: Stable appearance of a left subclavian pacemaker The lungs are clear and expanded. There is no demonstrated pleural abnormality. Normal size heart. Normal mediastinum and adam. Normal visualized pulmonary arteries. Normal visualized aortic arch and descending thoracic aorta. Normal visualized thoracic spine. Replaced right glenohumeral joint free of complication There is no demonstrated abnormality of the visualized soft tissue structures of the upper abdomen. RAD/Chest PA and Lateral IMPRESSION: No acute pulmonary process Electronically Signed: Tex Carmona MD at 13:45 EST , Service support ,
[2018-03-17 14:12] VITALS: BP 134/81; PULSE 62; RESP 18; O2SAT 97
--- NOTE | 2018-03-17 14:52 | ED.VISSUMM ---
- ER Visit Summary Date of Service: 03/17/18 Chief Complaint: Cough History of Present Illness: The patient is a 72 M who presents with a cough for 4-5 days and some breathing difficulty. No fever or chills. He has some upper airway congestion. Physical Examination: Not appear in acute distress. Moist mucous membranes, no obvious facial deformity. There is upper airway congestion. No C-spine tenderness supple neck. Regular rate and rhythm without any obvious murmurs Clear lungs bilaterally speaking in full sentences without any obvious respiratory distress there is a bronchial cough. Abdomen soft and nontender no guarding or rebound Moves all extremities without any difficulty or pain. Skin does not show any obvious rashes or lesions, no trauma. Alert oriented ?3 with no gross focal deficit Emergency Department Course and Treatment: X-rays negative signs are consistent with bronchitis patient will be discharged with treatment. Disposition: Discharge stable condition Impression: Bronchitis This note was generated with [employer] dictation software. It may contain incorrect words, spelling, and punctuation that were not noted in review of the chart prior to signing ED Disposition - Plan for ED Patient: Disposition: Home or Assisted Living Chief Complaint: Shortness of Breath Instructions: Acute Bronchitis Prescriptions: Albuterol IH (ProAir) [Proair Hfa] 1 puff INHALATION Q4H PRN PRN #1 inhaler PRN Reason: Cough Azithromycin 250 mg PO DAILY #6 tab Prednisone 40 mg PO DAILY #10 tab Referrals: [facility] [Primary Care Provider] - 3-5 Days
== END 2018-03-17 15:21 | disposition home or self-care (01) ==
PROVIDERS: Emergency Provider Emergency Medicine
DX: J40 Bronchitis, not specified as acute or chronic (principal); Z79.82 Long term (current) use of aspirin; Z79.899 Other long term (current) drug therapy; Z95.0 Presence of cardiac pacemaker
CPT/HCPCS: 71046; 99282

== ENCOUNTER → 2018-09-19 10:25 | Outpatient (CLI) | payer MEDICARE, OTHER, SELFPAY ==
[2018-09-19 10:17] VITALS: BMI 28.5
[2018-09-19 10:50] LABS: Hemoglobin 13.9 g/dL (13.0-16.5); Mean Corp Hgb Conc 33.1 g/dL (32-36); Mean Corpuscular Hgb 30.5 pg (27.0-32.0); Mean Corpuscular Volume 92.1 fL (80-94); Mean Platelet Vol. 9.1 fl (6.2-12.0); Platelet Count 204 K/mm3 (150-450); Red Blood Count 4.56 M/mm3 (4.6-6.2); White Blood Count 7.3 K/mm3 (4.4-11.0)
[2018-09-19 11:22] LABS: Anion Gap 8 (5-15); BUN 15 mg/dL (7-18); Chloride 107 mmol/L (98-107); Creatinine, Serum 1.07 mg/dL (0.70-1.30); EST Glomerular Filtration Rate 72 mL/min (>60); Est Glom Filt Rate - Afr Amer 87 mL/min (>60); Glucose 89 mg/dL (74-106); Sodium Level 140 mmol/L (136-145)
== END ==
PROVIDERS: Referring Provider Internal Medicine Cardiovascular Disease; Visit Provider Internal Medicine Cardiovascular Disease
DX: I49.5 Sick sinus syndrome (principal); Z95.0 Presence of cardiac pacemaker
CPT/HCPCS: 36415; 80048; 85027

== ENCOUNTER 2018-10-02 06:55 | Day surgery (SDC) | payer MEDICARE, SELFPAY ==
[2018-09-19 10:17] VITALS: BMI 28.5
--- NOTE | 2018-09-19 10:17 | HP_ITS ---
HPI HPI History of Present Illness Surgical H&P: Yes Details: CHITRA TREVINO, is a 72 M who presents to the office today for follow-up visit. He is a gentleman who had presented to the hospital in August of 2017 after he was found unresponsive. Emergency medical squad brought him to the hospital where he was evaluated. He had a series of tests including a stress test which was negative for ischemia, an echocardiogram which demonstrated stage I diastolic dysfunction and an ejection fraction of 65% with mild mitral and tricuspid regurgitation. Eventually he had an implantable loop recorder placed. He had presented with a syncopal episode in February 2018. Interrogation of his loop recorder demonstrated pauses of more than 3 seconds. And in February 2018 he had a dual-chamber pacemaker placed. He has done well since. He has also been taking seizure medication. He has had no neck arm or jaw discomfort suggest angina no dizziness or diaphoresis no near syncope or syncope. He continues on his same medications. His physical exam demonstrates clear lung mcmullen regular rate and rhythm and no pedal edema his blood pressure is under good control. Intake Vital Signs 09/19/18 Height 5 ft 6 in 09/19/18 Weight: 188 lb 09/19/18 Body Mass Index (BMI) 30.3 09/19/18 Blood Pressure 126/79 H 09/19/18 Respiratory Rate 16 09/19/18 Pulse Rate 64 09/19/18 Pulse Ox 96 Intake Visit Reasons: 1 Y FU Allergies No Known Allergies Allergy (Verified 09/19/18 09:28) Medications Omeprazole [Prilosec] 20 mg PO BREAKFAST 07/18/16 [History Confirmed 09/19/18] Dorzolamide HCl/Timolol Maleat [Cosopt Eye Drops] 1 drp EACH EYE BID 08/25/17 [History Confirmed 09/19/18] Gabapentin [Neurontin] 300 mg PO DAILY 01/07/18 [History Confirmed 09/19/18] Tamsulosin HCl [Flomax] 0.4 mg PO DAILY@1730 #90 cap 01/08/18 [Rx Confirmed 09/19/18] Aspirin [Aspir 81] 81 mg PO DAILY 03/17/18 [History Confirmed 09/19/18] Atorvastatin Calcium 80 mg PO QHS 03/17/18 [History Confirmed 09/19/18] Cholecalciferol (VIT D3) [Vitamin D] 1,000 unit PO DAILY 03/17/18 [History Confirmed 09/19/18] Levetiracetam 500 mg PO BID 03/17/18 [History Confirmed 09/19/18] PFS Medical History Symptomatic bradycardia (Resolved) Sick sinus syndrome (Chronic) Hyperlipidemia (Chronic) BPH with urinary obstruction (Chronic) DDD (degenerative disc disease), lumbar (Chronic) GERD (gastroesophageal reflux disease) (Chronic) Glaucoma (Chronic) Prostate cancer (Chronic) Syncope (Resolved) Surgical History Presence of permanent cardiac pacemaker (Chronic 02/07/18) History of appendectomy (Resolved) History of exploratory laparotomy (Resolved) History of lumbar surgery (Resolved) Status post placement of implantable loop recorder (Resolved 08/26/17) Family History Father CAD (coronary artery disease) CABG Hypertension Diabetes Cancer Mother Cancer Social History (Updated 09/19/18 @ 10:18 by Mickey Luis MD) Smoking Status: Never smoker ROS Const Const: Positive for fatigue; negative for weakness, headache(s), frequent falls, difficulty sleeping or excessive sweating Eyes Eyes: Negative for loss of peripheral vision, transient loss of vision, blurry vision, double vision or tunnel vision ENT ENT: Negative for headache(s), dizziness, Nosebleed/epistaxis or balance problems Cardio Chest Pain: No Palpitations: No Edema: None Muscle aches with walking: None Resp Respiratory: Positive for Cough (dry cough); negative for SOB with activity, SOB at rest, SOB orthopnea\SOB lying down or paroxysmal nocturnal dyspnea GI GI: Negative nausea, vomiting, heartburn or black,tarry stools : Negative for hematuria Musc Musc: Negative for muscle aches/ myalgia, muscle weakness, joint pain or balance problems Skin Skin: Negative non-healing lesions, rash or unusual bruising Neuro Neuro: Negative for dizziness, lightheadedness, near syncope, syncope, orthostatic symptoms, frequent falls, headache(s), weakness, blurry vision, double vision or lack of coordination Amrik Hematologic/Lymphatic: Negative for easy bleeding or easy bruising Endo Endo: Positive for fatigue; negative for excessive sweating or increased thirst/drinking Psych Psych: Negative for anxiety or depression Allergy Allergy/Immunology: Negative for hives, Negative for rash Cardiology Exam Const Appearance: cooperative, healthy appearing, no acute distress, well developed and well groomed Nutritional Appearance: average body habitus and well nourished Orientation: alert, awake and oriented x3 Head Head: normal to inspection, normocephalic and atraumatic Ears: hearing grossly normal bilaterally and external ears normal Nose: external nose normal, nares normal, nasal mucous membranes and turbinates normal, septum normal, no nasal discharge Face and Sinus: face symmetric Mouth: oral mucosae normal, tongue normal, oropharynx normal and moist mucous membranes Teeth and gingiva: dentition normal Throat: posterior oropharynx normal, tonsils normal and uvula midline Eyes General: appearance normal, both eyes and all related structures Eyelids: eyelids normal Conjunctivae: conjunctivae normal Pupils: PERRL, normal by confrontation and accommodation normal EOM: EOM intact bilaterally Neck Neck: normal visual inspection, trachea midline and no JVD JVD: +5 Carotids: normal carotid upstroke and bounding pulses Chest Chest inspection: normal inspection of the chest, symmetric chest movement and normal respiratory effort Auscultation: Bilateral: Clear to Auscultation Cardio Palpation: normal PMI Rate: regular rate Rhythm: regular rhythm Heart sounds: S1 normal, S2 normal and normal, physiologic split S2; negative rub, gallop or murmur GI GI: normal to inspection, soft, no hepatosplenomegaly and bowel sounds present Neuro General: alert, awake, oriented x3, gait normal, moves all extremities and no focal sensory deficit Skin Skin: no rashes or lesions noted Extremities Pulses: Normal: Right Femoral Pulse, Left Femoral Pulse, Right Dorsalis Pedis Pulse, Left Dorsalis Pedis Pulse, Right Posterior Tibial Pulse, Left Posterior Tibial Pulse, Right Radial Pulse, Left Radial Pulse Lower Extremity Edema: None: Bilateral Musculoskel Musculoskeletal: No joint tenderness Psych Psychological: normal affect Assessment & Plan 1. Presence of permanent cardiac pacemaker Z95.0 Plan He is status post permanent pacemaker implantation. His pacemaker was interrogated today and he is a sensed V sensed at 68 bpm. Battery longevity is over 8 years. Lead impedances also noted to be normal no VT and VF episodes have been noted. He also has an implantable loop recorder which is scheduled to be explanted. The risk benefits alternatives have been explained to him he understands and agrees to proceed. Orders Orders: Loop Recorder 1 Week Plan Detail Follow Up 1 Year Coding Level of Care Code Off vis,est,level 3 Diagnoses Presence of permanent cardiac pacemaker Z95.0 Coding Level of Care Code Off vis,est,level 3 Diagnoses Presence of permanent cardiac pacemaker Z95.0 Supplemental Info Supplemental Information Diagnostics Electrocardiogram 02/06/18 Pacemaker Check 06/21/18 Chest X-Ray 03/17/18 09/19/18 1018 <Electronically signed by Mickey Esteban> Date _ Mickey Luis MD
[2018-10-01 10:33] VITALS: BMI 29.0
--- NOTE | 2018-10-02 08:35 | CL.IE_ITS ---
Patient: CHITRA TREVINO Study Date: 10/02/2018 Performing: Mickey Luis MD : 1945 Age: 73 Gender: male PROCEDURES PERFORMED [id number] OF LOOP RECORDER INDICATIONS Syncope Loop removal PROCEDURE DETAILS The patient was brought to the Catheterization Lab in the postabsorptive nonsedated state. Infor med consent was obtained prior to the procedure. Local anesthetic was given subcutaneously to the le ft upper chest area with Lidocaine 2%. Incision was made to the left upper chest. ICM Loop Recorder w as removed. Skin closure was completed with 3-0 Vicryl. Steri-strips applied to Lt chest area. The p atient tolerated the procedure well. Estimated Blood Loss: 10 ml's IMPLANTED / EX-PLANTED DEVICES EXPLANTED DEVICE(S): ICM Loop Recorder - Early Learning Teacher: [employer], Model #Linq , Serial #[id number] DEVICE PARAMETERS CONCLUSIONS / RECOMMENDATIONS Device Conclusions: Successful removal of a patient activated loop recorder. Device Recommendations: Follow up with Primary Care Physician PROCEDURE MEDICATIONS Versed 1 mg IV Oxygen: 2 L/min via nasal cannula Ancef 2 Gm IV @ 10/02/2018 07:57:36 Signed By Mickey Luis MD On 10/02/2018 08:35:40 Signed By Mickey Luis MD On 10/02/2018 08:34:59 Mickey Luis MD
--- NOTE | 2018-10-02 08:39 | PCM.HP.BLA ---
Problem List (1) Symptomatic bradycardia Status: Resolved (2) Sick sinus syndrome Status: Chronic History and Physical Date of Admission: 10/02/18 HPI Details: CHITRA TREVINO, is a 72 M who presents to the office today for removal of his loop recorder. He is a gentleman who had presented to the hospital in August of 2017 after he was found unresponsive. Emergency medical squad brought him to the hospital w here he was evaluated. He had a series of tests including a stress test which was negative for ischemia, an echocardiogram which demonstrated stage I diastolic dysfunction and an ejection fraction of 65% with mild mitral and tricuspid regurgitation. Eventually he had an implantable loop recorder placed. He had presented with a syncopal episode in February 2018. Interrogation of his loop recorder demonstrated pauses of more than 3 seconds. And in February 2018 he had a dual-chamber pacemaker placed. He has done well since. He has also been taking seizure medication. He has had no neck arm or jaw discomfort suggest angina no dizziness or diaphoresis no near syncope or syncope. He continues on his same medications. Intake Vital signs: see chart Allergies No Known Allergies Allergy (Verified 09/19/18 09:28) Medications Omeprazole [Prilosec] 20 mg PO BREAKFAST 07/18/16 [History Confirmed 09/19/18] Dorzolamide HCl/Timolol Maleat [Cosopt Eye Drops] 1 drp EACH EYE BID 08/25/17 [History Confirmed 09/19/18] Gabapentin [Neurontin] 300 mg PO DAILY 01/07/18 [History Confirmed 09/19/18] Tamsulosin HCl [Flomax] 0.4 mg PO DAILY@1730 #90 cap 01/08/18 [Rx Confirmed 09/19/18] Aspirin [Aspir 81] 81 mg PO DAILY 03/17/18 [History Confirmed 09/19/18] Atorvastatin Calcium 80 mg PO QHS 03/17/18 [History Confirmed 09/19/18] Cholecalciferol (VIT D3) [Vitamin D] 1,000 unit PO DAILY 03/17/18 [History Confirmed 09/19/18] Levetiracetam 500 mg PO BID 03/17/18 [History Confirmed 09/19/18] COUNT INCLUDES THE [facility] Medical History Symptomatic bradycardia (Resolved) Sick sinus syndrome (Chronic) Hyperlipidemia (Chronic) BPH with urinary obstruction (Chronic) DDD (degenerative disc disease), lumbar (Chronic) GERD (gastroesophageal reflux disease) (Chronic) Glaucoma (Chronic) Prostate cancer (Chronic) Syncope (Resolved) Surgical History Presence of permanent cardiac pacemaker (Chronic 02/07/18) History of appendectomy (Resolved) History of exploratory laparotomy (Resolved) History of lumbar surgery (Resolved) Status post placement of implantable loop recorder (Resolved 08/26/17) Family History Father CAD (coronary artery disease) CABG Hypertension Diabetes Cancer Mother Cancer Social History (Updated 09/19/18 @ 10:18 by Mickey Luis MD) Smoking Status: Never smoker ROS Const Const: Positive for fatigue; negative for weakness, headache(s), frequent falls, difficulty sleeping or excessive sweating Eyes Eyes: Negative for loss of peripheral vision, transient loss of vision, blurry vision, double vision or tunnel vision ENT ENT: Negative for headache(s), dizziness, Nosebleed/epistaxis or balance problems Cardio Chest Pain: No Palpitations: No Edema: None Muscle aches with walking: None Resp Respiratory: Positive for Cough (dry cough); negative for SOB with activity, SOB at rest, SOB orthopnea\SOB lying down or paroxysmal nocturnal dyspnea GI GI: Negative nausea, vomiting, heartburn or black,tarry stools : Negative for hematuria Musc Musc: Negative for muscle aches/ myalgia, muscle weakness, joint pain or balance problems Skin Skin: Negative non-healing lesions, rash or unusual bruising Neuro Neuro: Negative for dizziness, lightheadedness, near syncope, syncope, orthostatic symptoms, frequent falls, headache(s), weakness, blurry vision, double vision or lack of coordination Amrik Hematologic/Lymphatic: Negative for easy bleeding or easy bruising Endo Endo: Positive for fatigue; negative for excessive sweating or increased thirst/drinking Psych Psych: Negative for anxiety or depression Allergy Allergy/Immunology: Negative for hives, Negative for rash Cardiology Exam Const Appearance: cooperative, healthy appearing, no acute distress, well developed and well groomed Nutritional Appearance: average body habitus and well nourished Orientation: alert, awake and oriented x3 Head Head: normal to inspection, normocephalic and atraumatic Ears: hearing grossly normal bilaterally and external ears normal Nose: external nose normal, nares normal, nasal mucous membranes and turbinates normal, septum normal, no nasal discharge Face and Sinus: face symmetric Mouth: oral mucosae normal, tongue normal, oropharynx normal and moist mucous membranes Teeth and gingiva: dentition normal Throat: posterior oropharynx normal, tonsils normal and uvula midline Eyes General: appearance normal, both eyes and all related structures Eyelids: eyelids normal Conjunctivae: conjunctivae normal Pupils: PERRL, normal by confrontation and accommodation normal EOM: EOM intact bilaterally Neck Neck: normal visual inspection, trachea midline and no JVD JVD: +5 Carotids: normal carotid upstroke and bounding pulses Chest Chest inspection: normal inspection of the chest, symmetric chest movement and normal respiratory effort Auscultation: Bilateral: Clear to Auscultation Cardio Palpation: normal PMI Rate: regular rate Rhythm: regular rhythm Heart sounds: S1 normal, S2 normal and normal, physiologic split S2; negative rub, gallop or murmur GI GI: normal to inspection, soft, no hepatosplenomegaly and bowel sounds present Neuro General: alert, awake, oriented x3, gait normal, moves all extremities and no focal sensory deficit Skin Skin: no rashes or lesions noted Extremities Pulses: Normal: Right Femoral Pulse, Left Femoral Pulse, Right Dorsalis Pedis Pulse, Left Dorsalis Pedis Pulse, Right Posterior Tibial Pulse, Left Posterior Tibial Pulse, Right Radial Pulse, Left Radial Pulse Lower Extremity Edema: None: Bilateral Musculoskel Musculoskeletal: No joint tenderness Psych Psychological: normal affect Assessment & Plan 1. Presence of permanent cardiac pacemaker Z95.0 Plan He is status post permanent pacemaker implantation. His pacemaker was interrogated today and he is a sensed V sensed at 68 bpm. Battery longevity is over 8 years. Lead impedances also noted to be normal no VT and VF episodes have been noted. He also has an implantable loop recorder which is scheduled to be explanted. The risk benefits alternatives have been explained to him he understands and agrees to proceed.
== END 2018-10-02 09:30 | disposition home or self-care (01) ==
PROVIDERS: Referring Provider Internal Medicine Cardiovascular Disease; Visit Provider Internal Medicine Cardiovascular Disease
DX: I49.5 Sick sinus syndrome (principal); R55 Syncope and collapse; E78.5 Hyperlipidemia, unspecified; Z95.0 Presence of cardiac pacemaker; H40.9 Unspecified glaucoma; M51.36 Other intervertebral disc degeneration, lumbar region; N40.1 Benign prostatic hyperplasia with lower urinary tract symptoms; K21.9 Gastro-esophageal reflux disease without esophagitis; Z79.82 Long term (current) use of aspirin; Z79.899 Other long term (current) drug therapy
CPT/HCPCS: 33286; 99152; 99153; J7040; A4216

== ENCOUNTER 2021-01-20 15:36 | Emergency (ER) | payer OTHER, SELFPAY ==
[2021-01-20 15:37] VITALS: BP 161/112; PULSE 88; RESP 16; TEMP 36.6; O2SAT 97; BMI 27.3
[2021-01-20 15:39] VITALS: BP 161/112; PULSE 88; RESP 16; TEMP 36.6; O2SAT 97
--- NOTE | 2021-01-20 16:07 | ED.VIS.DENTA ---
HPI History of Present Illness Chief Complaint: Dental Informant: patient Onset/Context/Timing Onset: Weeks (2) Context: Gradual Onset Timing: Continuous Quality: Sharp Location: Left lower mandible Worsened by: Opening jaw, chewing Relieved by: - (Closing jaw) Associated Symptoms Assocated Symptom - Dental: jaw swelling and face swelling; Negative for fever, cold sensitivity or hot sensitivity Narrative Narrative: Patient presents with left lower dental pain that has been getting worse over the past 2 weeks. Patient had a dental extraction done at that time. Patient states that he developed an infection after this. Patient has been on Augmentin for the past week. Patient states it is not helping. Patient describes his pain is sharp. Patient states it is over the left lower molar area. Patient states it is worse with chewing and opening his jaw. Patient states it is better whenever he keeps his mouth closed. Patient does admit to some swelling of his left lower jaw and face. Patient denies any fevers or chills. Patient denies any hot or cold sensitivity. [facility] Medical History (Updated 01/20/21 @ 19:[address] Jitendra Suero, ) BPH with urinary obstruction DDD (degenerative disc disease), lumbar GERD (gastroesophageal reflux disease) Glaucoma Hyperlipidemia Prostate cancer Sick sinus syndrome Symptomatic bradycardia Syncope Home Medications omeprazole 20 mg PO BREAKFAST 07/18/16 [History Last Taken 10/02/18] dorzolamide-timolol 1 drp EACH EYE BID 08/25/17 [History Last Taken 10/02/18] gabapentin 300 mg PO DAILY 01/07/18 [History Last Taken 10/02/18] tamsulosin 0.4 mg PO DAILY@1730 #90 cap 01/08/18 [Rx Last Taken 02/06/18 09:00] atorvastatin 80 mg PO QHS 03/17/18 [History Last Taken Unknown] cholecalciferol (vitamin D3) 1,000 unit PO DAILY 03/17/18 [History Last Taken Unknown] levetiracetam 500 mg PO BID 03/17/18 [History Last Taken Unknown] cyanocobalamin (vitamin B-12) 1,000 mcg capsule 1,000 mcg PO DAILY 10/04/19 [History Last Taken Unknown] melatonin 3 mg capsule 3 mg PO HS PRN 09/30/20 [History Last Taken Unknown] clindamycin HCl [Cleocin HCl] 300 mg PO Q6H #40 capsule 01/20/21 [Rx Last Taken Unknown] Allergy/AdvReac Type Severity Reaction Status Date / Time No Known Allergies Allergy Verified 09/30/20 10:05 Family History Father CAD (coronary artery disease) CABG Hypertension Diabetes Cancer Mother Cancer Surgical History History of appendectomy History of exploratory laparotomy History of loop recorder (10/02/18) History of lumbar surgery Presence of permanent cardiac pacemaker (02/07/18) Status post placement of implantable loop recorder (08/26/17) Social History Smoking Status: Never smoker ROS ROS ED Constitutional Constitutional ED: Denies chills or fever(s) Eyes Eyes: Denies blurry vision or change in vision ENT ENT ED: Reports rhinorrhea; Denies sore throat Cardiovascular Cardiovascular: Denies chest pain or palpitations Respiratory/Chest Respiratory/Chest: Denies cough or dyspnea Gastrointestinal Gastrointestinal: Reports diarrhea; Denies nausea or vomiting Genitourinary Genitourinary ED: Denies dysuria or hematuria Musculoskeletal Musculoskeletal: Denies back pain or neck pain Integumentary Denies abscess or rash Neurologic Neurologic: Reports headache(s); Denies weakness Allergic/Immunologic Allergic/Immunologic ED: Denies mouth swelling or urticaria EXAM Physical Exam Const Vital Signs: 01/20/21 15:37 01/20/21 15:39 01/20/21 19:59 Temperature 97.9 F 97.9 F Temperature Source Temporal Temporal Pulse Rate 88 88 72 Respiratory Rate 16 16 16 Blood Pressure 161/112 H 161/112 H 147/88 H Blood Pressure Mean 128 128 Pulse Ox 97 97 97 Oxygen Delivery Method Room Air Room Air Positive well nourished and well developed General Appearance ED: well developed HEENT Reports moist mucous membranes HEENT Narrative: There is tenderness and mild gingival edema around the left lower first molar area. There is no abscess or fluctuance. I do not see any evidence of dry socket. Oropharynx is clear. Airway is patent. There is no sublingual edema or erythema. There is no sign of Mike's angina Teeth and Gingiva: caries and gingiva abnormal Positive for gingival edema Neck supple and no JVD Resp normal respiratory effort and clear to auscultation bilaterally Cardio regular rate, regular rhythm and no murmurs GI normal to inspection, nondistended, normoactive bowel sounds and non-tender Palpation: soft Extremity normal to inspection General Extremety ED: Negative for edema or tenderness General Extremity: Negative for edema Neuro oriented x3, CN's II-XII intact bilaterally and no sensory deficits noted Sensorium / Orientation: alert Motor Exam: strength 5/5 throughout Psych mental status grossly normal Skin no rashes or lesions noted MDM MDM MDM Narrative Medical decision making narrative: Patient was given a dose of clindamycin IV here. CBC and comprehensive metabolic profile were obtained and were within normal limits. Patient was instructed to stop taking Augmentin. Patient given a prescription for Augmentin. Patient was instructed to follow-up with his dentist in 3 to 5 days. Patient understood and was agreeable with the plan. All questions were answered. Lab Data Attestation: I reviewed the patient's lab results. Labs: Laboratory Results - last 24 hr 01/20/21 01/20/21 16:35 16:35 WBC 6.0 RBC 4.74 Hgb 14.5 Hct 42.6 MCV 89.9 MCH 30.6 MCHC 34.0 RDW Std Deviation 41.4 RDW Coeff of Carly 12.8 Plt Count 195 MPV 9.5 Immature Gran % (Auto) 0.300 Neut % (Auto) 75.6 H Lymph % (Auto) 15.8 L [place] % (Auto) 6.8 Eos % (Auto) 1.2 Baso % (Auto) 0.3 Absolute Neuts (auto) 4.5 Absolute Lymphs (auto) 0.95 Nucleated RBC % 0 Sodium 138 Potassium 3.7 Chloride 107 Carbon Dioxide 23.0 Anion Gap 8 BUN 14 Creatinine 1.22 Estim Creat Clear Calc 47.94 Est GFR (MDRD) Af Amer 75 Est GFR (MDRD) Non-Af 62 BUN/Creatinine Ratio 11.5 Glucose 84 Calcium 8.8 Total Bilirubin 1.30 H AST 22 ALT 21 Alkaline Phosphatase 99 Total Protein 7.1 Albumin 3.7 Globulin 3.4 Albumin/Globulin Ratio 1.1 Discharge Plan Triage Chief Complaint: Dental ED Provider: Jitendra Suero Dx/Rx/DC Orders Clinical Impression: Odontalgia Instructions: ED Dental Pain Prescriptions: New clindamycin HCl [Cleocin HCl] 300 MG capsule 300 mg PO Q6H Qty: 40 RF: 0 No Action cyanocobalamin (vitamin B-12) 1,000 mcg capsule 1,000 mcg PO DAILY RF: 0 melatonin 3 mg capsule 3 mg PO HS PRNRF: 0 omeprazole 20 MG capsule 20 mg PO BREAKFAST RF: 0 dorzolamide-timolol 10 ML drops 1 drp EACH EYE BID RF: 0 gabapentin 300 MG capsule 300 mg PO DAILY RF: 0 tamsulosin 0.4 MG capsule 0.4 mg PO DAILY@1730 Qty: 90 RF: 0 atorvastatin 80 MG tablet 80 mg PO QHS RF: 0 levetiracetam 500 MG tablet 500 mg PO BID RF: 0 cholecalciferol (vitamin D3) 1,000 UNIT tablet 1,000 unit PO DAILY RF: 0 [facility] [[facility] Provider[facility] - 3-5 Days Dentist,Your [STAFF PHYSICIAN] - 3-5 Days Disposition Disposition: Home, Self Care Discharge Date/Time: 01/20/21 19:59
[2021-01-20] MEDS: Morphine 4 MG/ML Syringe IV (16:41)
[2021-01-20 16:50] LABS: Absolute Lymphocyte Count 0.95 X10^3/uL (0.83-4.51); Absolute Neutrophil Count 4.5 X10^3/uL (2.0-7.7); Basophil# 0.02 X10^3/uL; Basophil% 0.3 % (0-1); Eosinophil# 0.07 X10^3/uL; Eosinophils% 1.2 % (0-5); Hematocrit 42.6 % (40-54); Hemoglobin 14.5 g/dL (13.0-16.5); Lymphocyte # 0.95 X10^3/ul (0.83-4.51); Lymphocyte % 15.8 % (19-41); Mean Corpuscular Hgb 30.6 pg (27.0-32.0); Mean Corpuscular Volume 89.9 fL (80-94); Mean Platelet Vol. 9.5 fl (6.2-12.0); Monocyte# 0.41 X10^3/uL; Monocyte% 6.8 % (0-10); NRBC Flagged by Analyzer 0 % (0-5); Neutrophil # 4.54 X10^3/uL (2.7-7.7); Neutrophil % 75.6 % (47-70); Platelet Count 195 K/mm3 (150-450); RBC Distribution Width CV 12.8 % (11.6-14.6); RBC Distribution Width SD 41.4 fl (35.1-43.9); Red Blood Count 4.74 M/mm3 (4.6-6.2)
[2021-01-20 17:05] LABS: ALB/GLOB Ratio 1.1 RATIO (0.9-2.4); AST(SGOT) 22 U/L (15-37); Alanine Aminotransfer ALT/SGPT 21 U/L (16-61); Albumin, Serum 3.7 g/dL (3.2-5.0); Alkaline Phosphatase 99 U/L (45-117); Anion Gap 8 (5-15); BUN 14 mg/dL (7-18); BUN/Creat Ratio 11.5 RATIO (10-20); Calcium,Total 8.8 mg/dL (8.5-10.1); Chloride 107 mmol/L (98-107); Creatinine, Serum 1.22 mg/dL (0.70-1.30); EST Glomerular Filtration Rate 62 mL/min (>60); Est Glom Filt Rate - Afr Amer 75 mL/min (>60); Estimated Creatinine Clearance 47.94 ml/min; Globulin 3.4 g/dL (2.2-4.2); Glucose 84 mg/dL (74-106); Potassium 3.7 mmol/L (3.5-5.1); Protein, Total 7.1 g/dL (6.4-8.2); Sodium Level 138 mmol/L (136-145)
[2021-01-20 19:59] VITALS: BP 147/88; PULSE 72; RESP 16; O2SAT 97
== END 2021-01-20 19:59 | disposition home or self-care (01) ==
PROVIDERS: Emergency Provider Emergency Medicine
DX: K08.89 Other specified disorders of teeth and supporting structures (principal); E78.5 Hyperlipidemia, unspecified; K21.9 Gastro-esophageal reflux disease without esophagitis; I49.5 Sick sinus syndrome; Z95.0 Presence of cardiac pacemaker; Z79.899 Other long term (current) drug therapy
CPT/HCPCS: 80053; 85025; 96365; 96366; 96375; 99284; A4216

== ENCOUNTER 2021-03-18 15:59 | Emergency (ER) | payer OTHER, SELFPAY ==
[2021-03-18 16:01] VITALS: BP 125/103; PULSE 95; RESP 13; TEMP 36.5; O2SAT 96; BMI 28.0
--- NOTE | 2021-03-18 16:13 | CT_ITS ---
STUDY: CT BRAIN WITHOUT CONTRAST REASON FOR EXAM: Male, 75 years old. Altered Mental Status RADIATION DOSAGE (If Supplied By Facility): CTDIvol = ( 44.99 ) mGy, DLP = ( 796.11 ) mGycm TECHNIQUE: Transaxial CT imaging of the brain was performed without administration of intravenous contrast material. Individualized dose optimization techniques were used for this CT. COMPARISON: 02/06/2018 FINDINGS: Normal soft tissue structures. Stable calvarium. Sclerotic lesion of the anterior foramen magnum/skull base on image 7 is stable since 2018 indicating a benign etiology such as a bone island. There is mild cerebral atrophy with widening of the extra-axial spaces and ventricular dilatation. There are areas of decreased attenuation within the white matter tracts of the supratentorial brain, consistent with microvascular disease changes. Normal basal ganglia and thalami. Normal brainstem. Normal cerebellum. There is no intracranial hemorrhage. There are no findings of an acute ischemic infarction. Normal visualized paranasal sinuses. CT/Brain/Head without Contrast IMPRESSION: No acute intracranial hemorrhage or mass effect. Electronically Signed: Torito Diggs MD ([place]) at 16:42 EST , Service support ,
--- NOTE | 2021-03-18 16:13 | EKG12_ITS ---
Test Reason : ALT LOC Blood Pressure : / mmHG Vent. Rate : 085 BPM Atrial Rate : 085 BPM P-R Int : 198 ms QRS Dur : 078 ms QT Int : 360 ms P-R-T Axes : 035 -18 036 degrees QTc Int : 428 ms Normal sinus rhythm Inferior infarct , age undetermined Abnormal ECG Confirmed by JUAN R AGUERO, [place] ([id number]), acquisitions editor MAHNAZ ORTIZ ([id number]) on 03/19/2021 1:28:41 PM Referred By: CHEMO Confirmed By:MICHELE PETE MD
--- NOTE | 2021-03-18 16:15 | EX.ED.DYSGE1 ---
HPI History of Present Illness Chief Complaint: Alt LOC Narrative Narrative: Patient presents with his brother for questionable seizure/mental status change. He states that they had just eaten lunch and were driving in the car when his brother made a funny noise and stopped talking. This lasted perhaps 5 minutes. There was no loss of bowel or bladder. There was no generalized shaking motion. His brother states that he thinks that he does have a seizure disorder and takes medication for it. His history and physical is limited secondary to possible postictal state/mental status change. [facility] Medical History (Updated 03/18/21 @ 18:16 by Ronal Elizondo MD) BPH with urinary obstruction DDD (degenerative disc disease), lumbar GERD (gastroesophageal reflux disease) Glaucoma Hyperlipidemia Prostate cancer Seizures Sick sinus syndrome Symptomatic bradycardia Syncope Home Medications omeprazole 20 mg PO BREAKFAST 07/18/16 [History Last Taken 10/02/18] dorzolamide-timolol 1 drp EACH EYE BID 08/25/17 [History Last Taken 10/02/18] gabapentin 300 mg PO DAILY 01/07/18 [History Last Taken 10/02/18] tamsulosin 0.4 mg PO DAILY@1730 #90 cap 01/08/18 [Rx Last Taken 02/06/18 09:00] atorvastatin 80 mg PO QHS 03/17/18 [History Last Taken Unknown] cholecalciferol (vitamin D3) 1,000 unit PO DAILY 03/17/18 [History Last Taken Unknown] levetiracetam 500 mg PO BID 03/17/18 [History Last Taken Unknown] cyanocobalamin (vitamin B-12) 1,000 mcg capsule 1,000 mcg PO DAILY 10/04/19 [History Last Taken Unknown] melatonin 3 mg capsule 3 mg PO HS PRN 09/30/20 [History Last Taken Unknown] clindamycin HCl [Cleocin HCl] 300 mg PO Q6H #40 capsule 01/20/21 [Rx Last Taken Unknown] Allergy/AdvReac Type Severity Reaction Status Date / Time No Known Allergies Allergy Verified 03/18/21 16:01 Family History Father CAD (coronary artery disease) CABG Hypertension Diabetes Cancer Mother Cancer Surgical History History of appendectomy History of exploratory laparotomy History of loop recorder (10/02/18) History of lumbar surgery Presence of permanent cardiac pacemaker (02/07/18) Status post placement of implantable loop recorder (08/26/17) Social History Smoking Status: Never smoker ROS ROS ED ROS Narrative Mildly limited secondary to patient condition. Constitutional: No fever, no chills. HEENT: No sore throat. No neck pain. No loss of vision. No rhinorrhea. Cardiovascular: No chest pain. No palpitations. No pedal edema. Respiratory: No cough, no shortness of breath. Abdominal: No abdominal pain. No nausea. No vomiting. Genitourinary: No dysuria. No hematuria. Musculoskeletal: No myalgias. No arthralgias. Neurologic: Denies headaches. No dizziness. No lightheadedness. Skin: No rash. No change in color. Psychiatric: No depression. No anxiety. Review of Systems ROS Unobtainable: due to mental status EXAM Physical Exam Narrative Exam Narrative: Afebrile. Vital signs noted. HEENT: Normocephalic. Atraumatic. PERRL, EOMI. Neck soft and supple. No point tenderness or step off. Cardiovascular: Regular rate and rhythm. No murmurs, rubs, or gallops appreciated. Respiratory: No tachypnea. Lungs clear to auscultation bilaterally. Gastrointestinal: Abdomen soft, nontender, with normoactive bowel sounds. No rebound or guarding. Neurological: Awake. Alert. Oriented to name, and place but thinks this is [facility]. Nonfocal, nonlateralizing. Skin: No rash. Normal color. No pallor. Musculoskeletal: No pedal edema. Full range of motion extremities. Const Vital Signs: 03/18/21 16:01 03/18/21 16:20 03/18/21 17:26 Temperature 97.7 F L Temperature Source Oral Pulse Rate 95 91 85 Respiratory Rate 13 22 H 20 H Blood Pressure 125/103 H 108/96 H 129/83 H Blood Pressure Mean 110 100 98 Pulse Ox 96 99 97 Oxygen Delivery Method Room Air Nasal Cannula Room Air Oxygen Flow Rate (L/min) 2 03/18/21 18:28 Temperature Temperature Source Pulse Rate 68 Respiratory Rate 15 Blood Pressure 118/82 H Blood Pressure Mean 94 Pulse Ox 93 Oxygen Delivery Method Room Air Oxygen Flow Rate (L/min) MDM MDM MDM Narrative Medical decision making narrative: Patient appears mildly postictal. Comprehensive work-up was pursued. [id number] glucose appropriately elevated at 145. EKG demonstrates normal sinus rhythm at 85 bpm without ectopy or acute ST changes. QTc normal at 428. I did review his medication list and he is on Keppra 500 mg twice a day. Level will be sent. CT of the brain shows no acute process, no hemorrhage or mass-effect. CBC is grossly normal. Potassium is slightly low at 3.3 which will be replaced orally with 40 mill equivalents. Creatinine slightly elevated at 1.69. His Keppra level is currently pending. Upon repeat examination at approximately 1800, his daughter is at the bedside, the patient is awake, alert, and oriented x3. He states he has not missed a dose of his medication and that he does have a history of seizure disorder for which he sees a neurologist at the [facility]. Additionally, he states he had upper respiratory infection type symptoms probably a week ago, took Tylenol and may have hit his head against the door of his closet. He may be having breakthrough seizures. I will check his urinalysis and treat with antibiotics accordingly, but regardless I do feel he would be able to be discharged safely home with follow-up to his neurologist at the [facility] for possible medication increase. His dipstick urinalysis is negative for leukocytes and nitrites. Micro analysis is negative for infection. I do not feel antibiotics are indicated. Disposition is discharged home in stable condition. Lab Data Attestation: I reviewed the patient's lab results. Labs: Laboratory Results - last 24 hr 03/18/21 03/18/21 03/18/21 16:02 16:10 16:10 WBC 8.4 RBC 4.83 Hgb 14.7 Hct 46.3 MCV 95.9 H MCH 30.4 MCHC 31.7 L RDW Std Deviation 44.5 H RDW Coeff of Carly 12.5 Plt Count 249 MPV 9.2 Sodium 139 Potassium 3.3 L Chloride 106 Carbon Dioxide 15.0 L Anion Gap 18 H BUN 10 Creatinine 1.69 H Estim Creat Clear Calc 34.61 Est GFR (MDRD) Af Amer 51 L Est GFR (MDRD) Non-Af 42 L BUN/Creatinine Ratio 5.9 L Glucose 152 H Calcium 9.0 Total Bilirubin 1.30 H AST 14 L ALT 24 Alkaline Phosphatase 145 H Total Protein 7.4 Albumin 3.9 Globulin 3.5 Albumin/Globulin Ratio 1.1 Urine Color Urine Clarity Urine pH Ur Specific [place] Urine Protein Urine Glucose (UA) Urine Ketones Urine Occult Blood Urine Nitrite Urine Bilirubin Urine Urobilinogen Ur Leukocyte Esterase Urine RBC Urine WBC Ur Squamous Epith Cells Urine Bacteria Urine Mucus POC Glucose 145 H 03/18/21 18:41 WBC RBC Hgb Hct MCV MCH MCHC RDW Std Deviation RDW Coeff of Carly Plt Count MPV Sodium Potassium Chloride Carbon Dioxide Anion Gap BUN Creatinine Estim Creat Clear Calc Est GFR (MDRD) Af Amer Est GFR (MDRD) Non-Af BUN/Creatinine Ratio Glucose Calcium Total Bilirubin AST ALT Alkaline Phosphatase Total Protein Albumin Globulin Albumin/Globulin Ratio Urine Color Yellow Urine Clarity Clear Urine pH 6.5 Ur Specific [place] 1.010 Urine Protein 15 H Urine Glucose (UA) Normal Urine Ketones Negative Urine Occult Blood Negative Urine Nitrite Negative Urine Bilirubin Negative Urine Urobilinogen Normal Ur Leukocyte Esterase Negative Urine RBC 0 SEEN Urine WBC 0 SEEN Ur Squamous Epith Cells 0 SEEN Urine Bacteria 0 SEEN Urine Mucus 0 SEEN POC Glucose Radiography Diagnostic Testing: Clinical Impression(s) from Imaging Studies Brain CT 03/18/21 16:13 IMPRESSION: No acute intracranial hemorrhage or mass effect. Electronically Signed: Torito Diggs MD ([place]) at 16:42 EST , Service support , Discharge Plan Triage Chief Complaint: Alt LOC ED Provider: Ronal Elizondo Dx/Rx/DC Orders Clinical Impression: Breakthrough seizure, Hypokalemia Instructions: ED Hypokalemia, ED Seizure, Recurrent (Adult) Prescriptions: No Action cyanocobalamin (vitamin B-12) 1,000 mcg capsule 1,000 mcg PO DAILY RF: 0 melatonin 3 mg capsule 3 mg PO HS PRNRF: 0 omeprazole 20 MG capsule 20 mg PO BREAKFAST RF: 0 dorzolamide-timolol 10 ML drops 1 drp EACH EYE BID RF: 0 gabapentin 300 MG capsule 300 mg PO DAILY RF: 0 tamsulosin 0.4 MG capsule 0.4 mg PO DAILY@1730 Qty: 90 RF: 0 atorvastatin 80 MG tablet 80 mg PO QHS RF: 0 levetiracetam 500 MG tablet 500 mg PO BID RF: 0 cholecalciferol (vitamin D3) 1,000 UNIT tablet 1,000 unit PO DAILY RF: 0 clindamycin HCl [Cleocin HCl] 300 MG capsule 300 mg PO Q6H Qty: 40 RF: 0 [facility] Provider: [facility] Referrals: [facility] [Primary Care Provider] - 03/19/21 Disposition Disposition: Home, Self Care
[2021-03-18 16:16] LABS: Bedside Glucose 145 mg/dL (70-110)
[2021-03-18 16:20] VITALS: BP 108/96; PULSE 91; RESP 22; O2SAT 99
[2021-03-18 16:20] LABS: Hematocrit 46.3 % (40-54); Hemoglobin 14.7 g/dL (13.0-16.5); Mean Corp Hgb Conc 31.7 g/dL (32-36); Mean Corpuscular Hgb 30.4 pg (27.0-32.0); Mean Corpuscular Volume 95.9 fL (80-94); Mean Platelet Vol. 9.2 fl (6.2-12.0); Platelet Count 249 K/mm3 (150-450); RBC Distribution Width CV 12.5 % (11.6-14.6); RBC Distribution Width SD 44.5 fl (35.1-43.9); Red Blood Count 4.83 M/mm3 (4.6-6.2); White Blood Count 8.4 K/mm3 (4.4-11.0)
[2021-03-18 16:36] LABS: ALB/GLOB Ratio 1.1 RATIO (0.9-2.4); AST(SGOT) 14 U/L (15-37); Alanine Aminotransfer ALT/SGPT 24 U/L (16-61); Albumin, Serum 3.9 g/dL (3.2-5.0); Alkaline Phosphatase 145 U/L (45-117); Anion Gap 18 (5-15); BUN 10 mg/dL (7-18); BUN/Creat Ratio 5.9 RATIO (10-20); Chloride 106 mmol/L (98-107); Creatinine, Serum 1.69 mg/dL (0.70-1.30); EST Glomerular Filtration Rate 42 mL/min (>60); Est Glom Filt Rate - Afr Amer 51 mL/min (>60); Estimated Creatinine Clearance 34.61 ml/min; Globulin 3.5 g/dL (2.2-4.2); Glucose 152 mg/dL (74-106); Potassium 3.3 mmol/L (3.5-5.1); Protein, Total 7.4 g/dL (6.4-8.2); Sodium Level 139 mmol/L (136-145)
[2021-03-18 17:26] VITALS: BP 129/83; PULSE 85; RESP 20; O2SAT 97
[2021-03-18 18:28] VITALS: BP 118/82; PULSE 68; RESP 15; O2SAT 93
[2021-03-18] MEDS: Potassium Chloride Oral Tablet 20 MEQ 40 MEQ PO (18:31)
[2021-03-18 18:45] LABS: Bacteria 0 SEEN /hpf (None Seen); Mucous, Urine 0 SEEN /hpf (<or=2+); Red Blood Cells-Urine 0 SEEN /hpf (0-5); Squamous Epithelial Cells - UA 0 SEEN /hpf (0-5); White Blood Cells 0 SEEN /hpf (0-5)
[2021-03-18 18:50] LABS: Color, Urine Yellow (Yellow); Glucose, Dipstick Normal (Normal); Ketone-Dipstick Negative (Negative); Leukocyte Esterase-Dipstick Negative /ul (Negative); Nitrite-Dipstick Negative (Negative); Occult Blood-Urine Negative /ul (Negative); Protein-Dipstick 15 mg/dl (Negative); Urine Bilirubin Dipstick Negative (Negative); Urine Clarity Clear (Clear); Urine Urobilinogen Normal (Normal); Urine pH 6.5 (5.0 - 8.0)
[2021-03-18 19:19] VITALS: BP 125/83; PULSE 76; RESP 15; O2SAT 98
[2021-03-24 16:30] LABS: KEPPRA (LEVETIRACETAM) 16.9 ug/mL (10.0-40.0)
== END 2021-03-18 19:21 | disposition home or self-care (01) ==
PROVIDERS: Emergency Provider Emergency Medicine; Visit Provider Emergency Medicine
DX: G40.909 Epilepsy, unspecified, not intractable, without status epilepticus (principal); I49.5 Sick sinus syndrome; E87.6 Hypokalemia; E78.5 Hyperlipidemia, unspecified; K21.9 Gastro-esophageal reflux disease without esophagitis; Z95.0 Presence of cardiac pacemaker; Z79.899 Other long term (current) drug therapy
CPT/HCPCS: 70450; 80053; 80177; 81001; 82962; 85027; 93005; 99284

== ENCOUNTER 2021-03-19 17:13 | Emergency (ER) | payer OTHER, SELFPAY ==
[2021-03-19 17:13] VITALS: BP 194/108; PULSE 70; RESP 16; TEMP 36.8; O2SAT 100; BMI 29.0
--- NOTE | 2021-03-19 17:38 | EX.ED.DYSGE1 ---
HPI History of Present Illness Chief Complaint: Seizure Informant: patient and family Onset/Context/Timing Onset: Today, Yesterday and Weeks Context: Sudden Onset Timing: Intermittent Quality: Absence seizure 1 week ago and today and generalized yesterday Location: Not applicable Current Severity: Gone Maximum Severity: Severe Worsened by: Known seizure disorder since 2017 Relieved by: Resolves on its own Associated Symptoms Associated Symptoms: None Narrative Narrative: Patient is a 75-year-old male with history of seizure disorder. He is on Keppra 500 mg twice daily. He contacted the [facility] who recommended he come to the emergency room. After speaking with family member recommendation is to increase his Keppra from home 500 twice daily to 750 twice daily. Apparently there was no physician at the [facility] and reason he presents to the ER today. Patient denies headache, visual, ocular auditory symptoms. Patient denies cardiac respiratory symptoms. Patient denies GI symptoms. He denies paresthesia, anesthesia medics. He reports that he is compliant with his medication. Prior similar symptoms: Yes Recent Illness/Hospitalization: Yes (Patient seen yesterday had full work-up.) [facility] Medical History BPH with urinary obstruction DDD (degenerative disc disease), lumbar GERD (gastroesophageal reflux disease) Glaucoma Hyperlipidemia Prostate cancer Seizures Sick sinus syndrome Symptomatic bradycardia Syncope Home Medications omeprazole 20 mg PO BREAKFAST 07/18/16 [History Last Taken 10/02/18] dorzolamide-timolol 1 drp EACH EYE BID 08/25/17 [History Last Taken 10/02/18] gabapentin 300 mg PO DAILY 01/07/18 [History Last Taken 10/02/18] tamsulosin 0.4 mg PO DAILY@1730 #90 cap 01/08/18 [Rx Last Taken 02/06/18 09:00] atorvastatin 80 mg PO QHS 03/17/18 [History Last Taken Unknown] cholecalciferol (vitamin D3) 1,000 unit PO DAILY 03/17/18 [History Last Taken Unknown] levetiracetam 500 mg PO BID 03/17/18 [History Last Taken Unknown] cyanocobalamin (vitamin B-12) 1,000 mcg capsule 1,000 mcg PO DAILY 10/04/19 [History Last Taken Unknown] melatonin 3 mg capsule 3 mg PO HS PRN 09/30/20 [History Last Taken Unknown] clindamycin HCl [Cleocin HCl] 300 mg PO Q6H #40 capsule 01/20/21 [Rx Last Taken Unknown] levetiracetam [Keppra] 750 mg PO BID #60 tab 03/19/21 [Rx Last Taken Unknown] Allergy/AdvReac Type Severity Reaction Status Date / Time No Known Allergies Allergy Verified 03/18/21 16:01 Family History Father CAD (coronary artery disease) CABG Hypertension Diabetes Cancer Mother Cancer Surgical History History of appendectomy History of exploratory laparotomy History of loop recorder (10/02/18) History of lumbar surgery Presence of permanent cardiac pacemaker (02/07/18) Status post placement of implantable loop recorder (08/26/17) Social History (Updated 03/19/21 @ 17:[address] Chapito Gregorio MD) household members: none Smoking Status: Never smoker substance use type: does not use ROS ROS ED Constitutional Constitutional ED: Denies chills, fever(s), subjective, sweats or weight loss Eyes Eyes: Denies blurry vision, change in vision or diplopia ENT ENT ED: Denies ear pain, rhinorrhea or sore throat Cardiovascular Cardiovascular: Denies chest pain, palpitations or racing heartbeat Respiratory/Chest Respiratory/Chest: Denies cough, dyspnea or dyspnea on exertion Gastrointestinal Gastrointestinal: Denies abdominal pain, diarrhea, nausea or vomiting Genitourinary Genitourinary ED: Denies dysuria, hematuria or urinary frequency Musculoskeletal Musculoskeletal: Denies arthralgias, back pain, myalgias or neck pain Neurologic Neurologic: Denies headache(s), paresthesias or weakness Endocrine Endocrinology: Denies polydipsia, polyphagia or polyuria EXAM Physical Exam Const Vital Signs: 03/19/21 17:13 Temperature 98.2 F Temperature Source Temporal Pulse Rate 70 Respiratory Rate 16 Blood Pressure 194/108 H Blood Pressure Mean 136 Pulse Ox 100 Oxygen Delivery Method Room Air Positive well nourished and well developed General Appearance ED: well developed and NAD; Negative for cyanotic, diaphoretic or pallor HEENT Reports TM's clear and moist mucous membranes HEENT Narrative: Head is atraumatic normocephalic. Tympanic Membrane ED: Yes TM's clear Eyes PERRL and EOMs intact bilaterally Eyes Narrative: There is no nystagmus. There is no APD. General Eye ED: Negative for pale conjunctiva or scleral icterus Neck no lymphadenopathy, supple and no JVD Chest Wall inspection of chest normal and palpation of chest normal Resp normal respiratory effort and clear to auscultation bilaterally Cardio regular rate, regular rhythm, S1 normal heart sound, S2 normal heart sound and no murmurs GI normal to inspection, nondistended, normoactive bowel sounds and non-tender Palpation: soft Back/Spine no CVA tenderness Cervical Spine: Negative for cervical spine tenderness Thoracic Spine / Upper Back: Negative for thoracic spinal tenderness or paraspinal muscle tenderness Extremity normal to inspection Neuro oriented x3, CN's II-XII intact bilaterally and no sensory deficits noted Sensorium / Orientation: alert Motor Exam: strength 5/5 throughout Psych mental status grossly normal Skin no rashes or lesions noted and no wounds General Skin Exam: Negative for jaundice or pallor MDM MDM MDM Narrative Medical decision making narrative: Patient presents with breakthrough seizure. Patient's Keppra was increased. He was given a dose of Keppra in the emergency department prior to discharge. Since he was seen yesterday had a full work-up which was unremarkable and has an appointment with the neurologist on Tuesday plan is increase Keppra from 500 twice daily to 750 twice daily Discharge Plan Triage Chief Complaint: Seizure ED Provider: Chapito Gregorio Dx/Rx/DC Orders Clinical Impression: Breakthrough seizure Instructions: ED Seizure, Recurrent (Adult) Prescriptions: New levetiracetam [Keppra] 750 mg tablet 750 mg PO BID Qty: 60 RF: 0 No Action cyanocobalamin (vitamin B-12) 1,000 mcg capsule 1,000 mcg PO DAILY RF: 0 melatonin 3 mg capsule 3 mg PO HS PRNRF: 0 omeprazole 20 MG capsule 20 mg PO BREAKFAST RF: 0 dorzolamide-timolol 10 ML drops 1 drp EACH EYE BID RF: 0 gabapentin 300 MG capsule 300 mg PO DAILY RF: 0 tamsulosin 0.4 MG capsule 0.4 mg PO DAILY@1730 Qty: 90 RF: 0 atorvastatin 80 MG tablet 80 mg PO QHS RF: 0 levetiracetam 500 MG tablet 500 mg PO BID RF: 0 cholecalciferol (vitamin D3) 1,000 UNIT tablet 1,000 unit PO DAILY RF: 0 clindamycin HCl [Cleocin HCl] 300 MG capsule 300 mg PO Q6H Qty: 40 RF: 0 [facility] [Primary Care Provider] - Disposition Disposition: Home, Self Care
[2021-03-19] MEDS: levETIRAcetam 500 MG Tablet PO (17:52)
== END 2021-03-19 17:55 | disposition home or self-care (01) ==
PROVIDERS: Emergency Provider Emergency Medicine; Visit Provider Emergency Medicine
DX: G40.909 Epilepsy, unspecified, not intractable, without status epilepticus (principal); I49.5 Sick sinus syndrome; E78.5 Hyperlipidemia, unspecified; N40.1 Benign prostatic hyperplasia with lower urinary tract symptoms; N13.8 Other obstructive and reflux uropathy; M51.36 Other intervertebral disc degeneration, lumbar region; K21.9 Gastro-esophageal reflux disease without esophagitis; Z85.46 Personal history of malignant neoplasm of prostate; H40.9 Unspecified glaucoma; Z79.899 Other long term (current) drug therapy; Z95.818 Presence of other cardiac implants and grafts
CPT/HCPCS: 99283